=== PATIENT | male | born 1940 | race Caucasian/White ===

== ENCOUNTER → 2019-08-06 14:52 | Outpatient (BNVA) | payer MEDICARE, OTHER, SELFPAY | PROVIDERS: Family Provider Family Medicine; PCP Family Medicine; Visit Provider Family Medicine | DX: M25.531 Pain in right wrist (principal) | CPT/HCPCS: 73130 ==

== ENCOUNTER → 2020-01-01 10:00 | Outpatient (BNVA) | payer MEDICARE, OTHER, SELFPAY | PROVIDERS: Family Provider Family Medicine; PCP Family Medicine; Visit Provider Urology | DX: N40.1 Benign prostatic hyperplasia with lower urinary tract symptoms (principal) | CPT/HCPCS: G0103 ==

== ENCOUNTER → 2020-01-15 10:49 | Outpatient (BNVA) | payer MEDICARE, OTHER, SELFPAY | PROVIDERS: Family Provider Family Medicine; PCP Family Medicine; Visit Provider Family Medicine | DX: E78.5 Hyperlipidemia, unspecified (principal); I10 Essential (primary) hypertension | CPT/HCPCS: 80053; 80061; 85025 ==

== ENCOUNTER → 2020-01-20 08:28 | Outpatient (BNVA) | payer MEDICARE, OTHER, SELFPAY | PROVIDERS: Family Provider Family Medicine; Visit Provider Specialist | DX: R41.9 Unspecified symptoms and signs involving cognitive functions and awareness (principal); Z87.891 Personal history of nicotine dependence | CPT/HCPCS: 96116; 99213 ==

== ENCOUNTER 2020-04-11 17:01 | Emergency (ER) | payer MEDICARE, OTHER, SELFPAY ==
[2020-04-11 17:11] VITALS: BP 150/79; PULSE 65; RESP 18; TEMP 36.9; O2SAT 97; BMI 29.7
[2020-04-11 17:17] VITALS: BP 150/79; PULSE 55; RESP 16; O2SAT 98
--- NOTE | 2020-04-11 17:17 | W.ED.WOUNDLC ---
HPI - Wound/Laceration General: Chief Complaint: Wound/Laceration Stated Complaint: cut hand with a knife Time Seen by Provider: 04/11/20 17:13 History of Present Illness: HPI narrative: 79-year-old male is using a machete at home is a laceration on the lateral aspect of the right index finger he is unsure of his last tetanus shot no other injuries Onset (ago): minute(s) Extremity Location: Right: hand Place: home Patient tetanus UTD: No Context: accidental Associated symptoms: Reports no associated symptoms; Denies chills, fever(s), nausea or vomiting Treatments prior to arrival: bandage Review of Systems Const: Denies: fever(s), chills, body aches, change in appetite, fatigue or malaise ENMT: Denies: throat pain, ear or mastoid pain, nasal discharge or nasal congestion Card: Denies: chest pain, edema, dyspnea on exertion or orthopnea Resp: Denies: dyspnea, productive cough or non-productive cough GI: Denies: abdominal pain, nausea, vomiting, hematemesis, coffee ground emesis, diarrhea, constipation, bloating, hematochezia or melena : Denies: flank pain, dysuria, urinary frequency or urinary urgency PFSH ED PFSH: Medical History 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) Atherosclerosis of coronary artery of [place] heart Bradycardia Carpal tunnel syndrome of left wrist Chronic diastolic (congestive) heart failure Depressed Dyslipidemia Dyslipidemia Essential (primary) hypertension Gastro-esophageal reflux disease without esophagitis History of colon polyps History of tick-borne disease positive serology for Erlichiosis Lacunar stroke Lumbar spondylosis Moderate obstructive sleep apnea C-pap 11-15 Neuropathy Plantar fasciitis Primary osteoarthritis, unspecified site Surgical History History of bilateral cataract extraction (~2012) History of total left knee replacement (~2011) Hx of angioplasty stents x , 2008; 2017 Hx of laminectomy lumbar L1-2-3-4-5 Hx of shoulder surgery (~2011) rotator cuff and tendon repairs x several per pt Family History Mother Diabetes Father CAD (coronary artery disease) Brother CAD (coronary artery disease) Sister CAD (coronary artery disease) Social History Smoking and tobacco status: former smoker Quit status (tobacco): has quit using tobacco Year quit tobacco: 42 Alcohol intake: never Lives independently: Yes Household members: spouse Housing: House Marital status: Current occupational status: retired History of recent travel: Yes ([place]) Current gender identity: Male Michelle/Buddhist: [facility] Physical Exam Const: COMMON NORMALS: no acute distress GENERAL APPEARANCE: cooperative and comfortable ORIENTATION/CONSCIOUSNESS: Yes awake, Yes oriented to person, Yes oriented to place and Yes oriented to time HENMT: COMMON NORMALS: normocephalic, atraumatic and hearing grossly normal bilaterally HEAD & SCALP: normocephalic and atraumatic Resp: COMMON NORMALS: normal respiratory effort, No retractions, No use of accessory muscles and clear to auscultation bilaterally AUSCULTATION: clear to auscultation bilaterally Cardio: COMMON NORMALS: regular rate, regular rhythm and No murmurs present (Cardio) RATE: regular rate RHYTHM: regular rhythm Extremity: NARRATIVE EXTREMITY EXAM: Laceration on the right index finger laterally. No tendon involvement. Patient able to hold against resistance. Neuro: SENSORIUM/ORIENTATION: Yes oriented to person, Yes oriented to place and Yes oriented to time Skin: COMMON NORMALS: no rashes or lesions noted GENERAL SKIN EXAM: no rashes or lesions noted Procedures Laceration Laceration 1: Site: hand (Right index finger) Side (If applicable): right Size (cm): 3 Description: linear Depth: simple, single layer Local Anesthetic: lidocaine 1% Amount of anesthesia used (mL): 3 Pre-repair: wound explored and irrigated extensively Skin layer closed with: nylon Size (cm): 4-0 Technique: running Course Vital Signs: Vital signs: Vital Signs Temperature 98.5 F 04/11/20 17:11 Pulse Rate 56 L 04/11/20 17:59 Respiratory Rate 16 04/11/20 17:59 Blood Pressure 145/80 04/11/20 17:59 Pulse Oximetry 98 04/11/20 17:59 MDM - Wound/Laceration MDM Narrative: Medical decision making narrative: Wound care instructions given. Sutures out in 7 to 10 days tetanus updated Discharge Plan Discharge Patient Disposition: Home Clinical Impression: Laceration Condition: Stable Prescriptions: No Action Lactobacillus acidophilus [Acidophilus] Capsule 100 mg PO DAILY RF: 0 tamsulosin 0.4 mg capsule 0.4 mg PO DAILY RF: 0 donepezil [Aricept] 5 mg tablet 5 mg PO DAILY Qty: 90 RF: 1 carvedilol 6.25 mg tablet 6.25 mg PO DAILY RF: 0 fluticasone propionate [Flonase Allergy Relief] 50 mcg/actuation spray,suspension 1 spray INTRANASAL Q12H Qty: 18.2 RF: 2 diclofenac sodium [Voltaren] 1 % gel 2 gm TOPICAL QID Qty: 100 RF: 0 azithromycin 500 mg tablet See Rx Instructions PO .COMPLEX Qty: 6 RF: 0 venlafaxine 150 mg capsule,extended release 24hr See Rx Instructions .ROUTE .COMPLEX Qty: 90 RF: 3 pravastatin 80 mg tablet 80 mg PO DAILY Qty: 90 RF: 0 ramipril 10 mg capsule 10 mg PO DAILY Qty: 90 RF: 0 Discharge Orders: Discharge Order (Routine); Ordered 04/11/20 Ordered By: Beltran Coffey Referrals: Lisa Hyde MD [Primary Care Provider] - Discharge Diet: Usual diet Discharge Activity: Increase activity as tolerated Activity Restrictions/Additional Instructions: Follow-up with your primary care doctor in 7 days to have sutures removed Discharge Date/Time: 04/11/20 17:59 Coding Level of Care Code ED Lunch Truck Driver for Mmeog Fwd Exam Detailed
[2020-04-11] MEDS: lidocaine 1% INJ 20 mL INJECTION (17:41)
[2020-04-11] MEDS: tetanus-dipt-pertussis 0.5 mL SDV IM (17:52)
[2020-04-11 17:59] VITALS: BP 145/80; PULSE 56; RESP 16; O2SAT 98
== END 2020-04-11 17:59 | disposition home or self-care (01) ==
PROVIDERS: Emergency Provider Family Medicine; PCP Family Medicine
DX: S61.210A Laceration without foreign body of right index finger without damage to nail, initial encounter (principal); E78.5 Hyperlipidemia, unspecified; I10 Essential (primary) hypertension; Z87.891 Personal history of nicotine dependence; W26.0XXA Contact with knife, initial encounter; Z23 Encounter for immunization
CPT/HCPCS: 12002; 12345; 90715; 99282

== ENCOUNTER 2020-04-15 14:14 | Emergency (ER) | payer MEDICARE, OTHER, SELFPAY ==
[2020-04-15 14:17] VITALS: BP 157/79; PULSE 62; RESP 17; TEMP 36.4; O2SAT 98; BMI 29.7
--- NOTE | 2020-04-15 14:27 | USCV_ITS ---
Bhupendra Ambriz Age: 79 Gender: M : 1940 Exam Date: 04/15/2020 14:42 Ordering Phys: Samuel Redding Technologist: Dary Bradford Exam Location: [facility] Indication: RECENT RT KNEE REPLACEMENT HISTORY: Recent Rt knee replacement PROCEDURES: Venous duplex imaging was performed in only the right lower extremity. The following venous structures were evaluated: common femoral vein, profunda vein, proximal portion of the greater saphenous vein, superficial femoral vein, and the popliteal vein. In addition, the posterior tibial and peroneal trunk were evaluated. Serial compression, augmentation maneuvers, and spectral Doppler flow evaluation were performed. FINDINGS: No DVT seen in any vessel examined CONCLUSIONS Negative right lower extremity venous Doppler ultrasound. Dr. Tammy Gupta MD (Electronically Signed) Final Date: 15 April 2020 15:04 S
--- NOTE | 2020-04-15 14:43 | W.ED.EXTPRO ---
HPI - Extremity Problem General: Chief complaint: Extremity Problem,Nontraumatic Stated complaint: sent by doctor/possible blood clot right leg Time Seen by Provider: 04/15/20 14:28 History of Present Illness: HPI Narrative: Patient is a 79-year-old male who comes to the ED with right calf pain and swelling below the knee. Patient was sent over here by his doctor to rule out a blood clot. Patient describes having brief episodes of right calf pain right around the back of the knee. These episodes are very brief and currently is not experiencing any lower leg pain. He also describes having some right knee swelling that comes and goes depending on how active he is that day. Patient had total knee replacement performed on March 17. He has been doing his post surgical therapy. He is able to bend knee. Patient is not currently on blood thinner. Patient denied any cough, coughing up blood, chest pain or shortness of breath. Associated symptoms: Deny chest pain, fever(s) or rash Review of Systems Const: Denies: fever(s), chills or fatigue Eyes: Denies: change in vision or eye discomfort ENMT: Denies: throat pain, odynophagia, nasal discharge or nasal congestion Card: Denies: chest pain, palpitations, edema, swelling of feet/ankles, dyspnea on exertion or orthopnea Resp: Denies: dyspnea, productive cough or non-productive cough GI: Denies: abdominal pain, nausea, vomiting, diarrhea, constipation or hematochezia : Denies: flank pain, difficulty urinating, dysuria or hematuria Musc: Reports: extremity pain (right lower leg) and extremity swelling (Right lower leg); Denies: neck pain or back pain Skin/Breast: Denies: rash or new lesions Neuro: Denies: headache(s), numbness in extremities or weakness in extremities PFS ED PFSH: Medical History 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) Atherosclerosis of coronary artery of [place] heart Bradycardia Carpal tunnel syndrome of left wrist Chronic diastolic (congestive) heart failure Depressed Dyslipidemia Dyslipidemia Essential (primary) hypertension Gastro-esophageal reflux disease without esophagitis History of colon polyps History of tick-borne disease positive serology for Erlichiosis Lacunar stroke Lumbar spondylosis Moderate obstructive sleep apnea C-pap 11-15 Neuropathy Plantar fasciitis Primary osteoarthritis, unspecified site Surgical History History of bilateral cataract extraction (~2012) History of total left knee replacement (~2011) Hx of angioplasty stents x 3, 2008; 2017 Hx of laminectomy lumbar L1-2-3-4-5 Hx of shoulder surgery (~2011) rotator cuff and tendon repairs x several per pt Family History Mother Diabetes Father CAD (coronary artery disease) Brother CAD (coronary artery disease) Sister CAD (coronary artery disease) Social History Smoking and tobacco status: former smoker Quit status (tobacco): has quit using tobacco Year quit tobacco: 40 Alcohol intake: never Lives independently: Yes Household members: spouse Housing: House Marital status: Current occupational status: retired History of recent travel: Yes ([place]) Current gender identity: Male Michelle/Latter Day: Hinduism of [facility] [place] Physical Exam Const: COMMON NORMALS: no acute distress, patient oriented x3, healthy appearing and alert GENERAL APPEARANCE: cooperative and comfortable HENMT: COMMON NORMALS: normocephalic HEAD & SCALP: normocephalic MOUTH: Normal oral and palatal mucosa present THROAT: posterior oropharynx normal and uvula midline Neck/C-Spine: COMMON NORMALS: supple GENERAL: Yes normal visual inspection Resp: COMMON NORMALS: normal respiratory effort, No retractions, No use of accessory muscles and clear to auscultation bilaterally EFFORT & INSPECTION: Yes able to speak in complete sentences, No tachypneic, No respiratory distress and No labored AUSCULTATION: clear to auscultation bilaterally, breath sounds present and lung sounds not diminished Cardio: COMMON NORMALS: regular rate, regular rhythm, S1 normal heart sound present, S2 normal heart sound present, No gallops present (Cardio), No clicks present (Cardio), No murmurs present (Cardio) and Peripheral pulses 2+ throughout RATE: regular rate RHYTHM: regular rhythm HEART SOUNDS: S1 normal heart sound present and S2 normal heart sound present PERIPHERAL PULSES: Peripheral pulses 2+ throughout GI: COMMON NORMALS: Normal to inspection, nondistended, normoactive bowel sounds present, Soft to palpation, non-tender and no masses PALPATION: Yes Soft to palpation : COMMON NORMALS: Yes no CVA tenderness BLADDER/KIDNEY EXAM: Yes no CVA tenderness Back/Pelvis: COMMON NORMALS: no CVA tenderness Extremity: NARRATIVE EXTREMITY EXAM: Patient is some right knee swelling. There is some mild warmth to the touch of the right knee joint but no redness. Patient is able to bend and flex right knee. Pedal pulse 2+. No tenderness upon palpation of the right calf. No suspicion for septic joint upon examination. GENERAL: Yes normal exam except as noted Neuro: COMMON NORMALS: patient oriented x3 and moves all extremities SENSORIUM/ORIENTATION: Yes alert Skin: COMMON NORMALS: no rashes or lesions noted GENERAL SKIN EXAM: no rashes or lesions noted and dry skin Course Vital Signs: Vital signs: Vital Signs Temperature 97.6 F 04/15/20 14:17 Pulse Rate 62 04/15/20 14:17 Respiratory Rate 18 04/15/20 14:49 Blood Pressure 157/79 04/15/20 14:17 Pulse Oximetry 98 04/15/20 14:17 MDM - Extremity (Nontraumatic) MDM Narrative: Medical decision making narrative: Patient is a 79-year-old male was sent to the ED by for right calf pain and right knee swelling. Patient had total knee replacement surgery performed on March 17. He denies any shortness of breath, chest pain, cough, coughing up blood. Patient's pulse 62 and respirations 18 and O2 saturation 98% on room air. Physical exam showed no calf tenderness with some swelling around the knee with some warmth to the touch. No erythema and patient was able to bend and move right knee joint appropriately. No suspicion for septic joint. Ultrasound of right lower extremity showed no DVTs or blood clots. Patient was discharged told to follow-up with PCP in 7 to 10 days for reevaluation. Return to ED precautions given. Patient understood and agreed with plan. Imaging Data^: US Vascular: Attestation: I personally reviewed and interpreted this imaging study as follows: Radiologist's impression: For some venous duplex on right lower extremity?prelim report?no DVTs or blood clots seen. Discharge Plan Discharge Patient Disposition: Home Clinical Impression: Pain of right lower extremity, Swelling of right knee joint Condition: Stable Prescriptions: No Action Lactobacillus acidophilus [Acidophilus] Capsule 100 mg PO DAILY RF: 0 tamsulosin 0.4 mg capsule 0.4 mg PO DAILY RF: 0 donepezil [Aricept] 5 mg tablet 5 mg PO DAILY Qty: 90 RF: 1 carvedilol 6.25 mg tablet 6.25 mg PO DAILY RF: 0 fluticasone propionate [Flonase Allergy Relief] 50 mcg/actuation spray,suspension 1 spray INTRANASAL Q12H Qty: 18.2 RF: 2 diclofenac sodium [Voltaren] 1 % gel 2 gm TOPICAL QID Qty: 100 RF: 0 azithromycin 500 mg tablet See Rx Instructions PO .COMPLEX Qty: 6 RF: 0 venlafaxine 150 mg capsule,extended release 24hr See Rx Instructions .ROUTE .COMPLEX Qty: 90 RF: 3 pravastatin 80 mg tablet 80 mg PO DAILY Qty: 90 RF: 0 ramipril 10 mg capsule 10 mg PO DAILY Qty: 90 RF: 0 Discharge Orders: Discharge Order (Routine); Ordered 04/15/20 Ordered By: Samuel Redding Referrals: Lisa Hyde MD [Primary Care Provider] - Discharge Diet: Regular Discharge Activity: Increase activity as tolerated Activity Restrictions/Additional Instructions: Follow-up with medical provider as directed in 7-10 days. Ultrasound was performed during the ED on right lower extremity and it ruled out any blood clots or DVTs. Continue taking home medications as prescribed. Return to the ER or your medical provider if condition worsens. Please read and understand discharge instructions. If any questions, please ask. Coding Level of Care Code ED Management Lead for Kapil Fwd Exam Comprehensive
[2020-04-15 14:49] VITALS: RESP 18
== END 2020-04-15 15:17 | disposition home or self-care (01) ==
PROVIDERS: Emergency Provider Physician Assistant; PCP Family Medicine
DX: M79.89 Other specified soft tissue disorders (principal); M79.604 Pain in right leg; E78.5 Hyperlipidemia, unspecified; I10 Essential (primary) hypertension; Z87.891 Personal history of nicotine dependence
CPT/HCPCS: 12345; 93971; 99281; 99282

== ENCOUNTER → 2020-05-10 11:24 | Outpatient (BNVA) | payer MEDICARE, OTHER, SELFPAY | PROVIDERS: PCP Family Medicine; Visit Provider Specialist | DX: R41.3 Other amnesia (principal); G31.84 Mild cognitive impairment of uncertain or unknown etiology; G47.00 Insomnia, unspecified | CPT/HCPCS: 99213 ==

== ENCOUNTER 2020-09-28 08:43 | Outpatient (CLI) | payer MEDICARE, OTHER, SELFPAY ==
--- NOTE | 2020-09-28 08:50 | CT_ITS ---
WS: [id number] CT NECK WITH CONTRAST HISTORY: DYSPHAGIA TECHNIQUE: Contiguous 5 mm axial images are performed through the neck with intravenous contrast. Sag ittal and coronal reformats are also submitted. All CT scans at [facility] use at least o ne of these dose optimization techniques: automated exposure control; mA and/or kV adjustment per pat ient size (includes targeted exams where dose is matched to clinical indication); or iterative recons truction. CONTRAST: CONTRAST: Omnipaque 300; 95 mL IV. DLP: 2831.25 mGycm COMPARISON: 09/04/2013 MRI cervical spine. There are some very mild asymmetry noted involving the LEFT palatine tonsil. Similar to prior studies . Otherwise the hypopharynx, oropharynx and nasopharynx are negative. No larynx abnormality. Vocal co rds are symmetric. Subglottic airway is normal. Torus tubarius and fossa of Rosenmuller and parapharyngeal fat are normal. No significant lymphadenopathy is identified. Thyroid gland and salivary glands are normally enhancing with no masses. Moderate multilevel spondylitic changes in the cervical spine. Degenerative changes at the SC joints. Visualized portions of the skull base demonstrate no abnormalities. Orbits and globes are within norm al limits. No soft tissue masses. Visualized paranasal sinuses and mastoid air cells are normal. Lung apices are clear. Small amount calcified plaque at the extracranial carotid bifurcations. CT/CT neck w con* [id number] IMPRESSION: 1. No abnormality noted within the larynx and no adenopathy. 2. Mild atherosclerosis carotid bifurcations.
--- NOTE | 2020-09-28 08:55 | FL_ITS ---
WS: [id number] ESOPHAGRAM WITH FLUOROSCOPY HISTORY: DYSPHAGIA COMPARISON: None available. FLUOROSCOPY TIME: 0.8 minutes. Esophagus and swallowing function: Patient was able to swallow the thin and thick barium mixtures as requested. After swallowing there is significant residual barium coating the oral pharynx, hypopharyn x, larynx and upper esophagus. There is no stricture identified. Towards the end of the examination w ith the thin liquids there was an episode of moderate aspiration of the barium. Patient elicited a st lakia responsive cough. Study terminated at that time. Esophageal dysmotility and tortuosity. FL/FL barium swallow [id number] IMPRESSION: 1. Episode of significant barium aspiration noted with thin liquids. 2. Otherwise there is significant residual coating after swallowing throughout the cervical esophagus. This places the patient at increased risk for persiste nt aspiration.
[2020-09-28 09:42] LABS: Blood Urea Nitrogen 15 mg/dL (8-23)
[2020-09-28] MEDS: iohexol 300 mg/mL 100 mL Btl IV (09:49)
== END 2020-09-28 08:44 | disposition home or self-care (01) ==
LOC: RADWPI 08:47
PROVIDERS: PCP Family Medicine; Visit Provider Specialist
DX: R13.10 Dysphagia, unspecified (principal); I65.29 Occlusion and stenosis of unspecified carotid artery
CPT/HCPCS: 70491; 74220; 82565; 84520; Q9967

== ENCOUNTER 2020-09-30 08:15 | Outpatient (CLI) | payer MEDICARE, OTHER, SELFPAY ==
--- NOTE | 2020-09-30 08:22 | FL_ITS ---
WS: [id number] Exam: FL barium swallow modifd [id number] Date/Time of Exam: 09/30/2020 8:39 AM Reason For Exam: Other dysphagia Fluoroscopy time: 4.2 minutes Modified barium swallow was performed in conjunction with the speech therapy service. The patient experienced some difficulty initiating the swallowing process specifically elevating the tongue the hard palate during swallowing. There was significant penetration into the laryngeal inlet when the patient ingested nectar consistency barium foodstuffs. This was remedied using a chin tuck t echnique. Using chin tuck the patient tolerated thin liquid, nectar consistency and solid barium mixt ure foodstuffs without a lot of difficulty. There were no other episodes of penetration or aspiration . Upper esophageal motility was somewhat sluggish. FL/FL barium swallow modifd [id number] IMPRESSION: 1. The patient had some difficulty initiating the swallowing process at the lev el of the oropharynx. 2. The patient experienced penetration into the laryngeal inlet and coughing wh en ingesting nectar consistency barium foodstuffs. 3. Sluggish esophageal motility involving the upper esophagus. 4. Patient at moderate risk for aspiration. See speech therapist's report for r ecommendations and additional detail.
== END 2020-09-30 08:16 | disposition home or self-care (01) ==
LOC: RAD 08:19
PROVIDERS: PCP Family Medicine; Visit Provider Specialist
DX: R13.19 Other dysphagia (principal)
CPT/HCPCS: 74230; 92611

== ENCOUNTER → 2020-10-04 15:28 | Outpatient (BNVA) | payer MEDICARE, OTHER, SELFPAY | PROVIDERS: PCP Family Medicine; Visit Provider Family Medicine | DX: K21.9 Gastro-esophageal reflux disease without esophagitis (principal); R13.10 Dysphagia, unspecified; R73.9 Hyperglycemia, unspecified | CPT/HCPCS: 80048 ==

== ENCOUNTER 2020-10-11 06:00 | Outpatient (RCR) | payer MEDICARE, OTHER, SELFPAY | END 2020-11-02 23:59 | disposition home or self-care (01) | LOC: TST 06:00 | PROVIDERS: PCP Family Medicine; Referring Provider Family Medicine; Visit Provider Family Medicine | DX: R13.10 Dysphagia, unspecified (principal) | CPT/HCPCS: 92507; 92610 ==

== ENCOUNTER 2020-10-15 12:37 | Observation (INO) | payer MEDICARE, OTHER, SELFPAY ==
[2020-10-15] VITALS (29 sets, daily range): BP systolic 150–170; BP diastolic 76–97; PULSE 45–78; RESP 13–23; TEMP 36.3–37.6; O2SAT 89–99; BMI 29.0
--- NOTE | 2020-10-15 12:43 | XRR_ITS ---
PROCEDURE INFORMATION: Exam: XR Chest Exam date and time: 10/15/2020 1:29 PM Age: 79 years old Clinical indication: Other: Dysarthria; Prior surgery; Surgery type: Stents; Additional info: Cp TECHNIQUE: Imaging protocol: XR of the chest Views: 1 view. COMPARISON: CT chest con [id number] 03/20/2019 11:42 AM FINDINGS: Lungs: No consolidation. Pleural spaces: Unremarkable. No pleural effusion. No pneumothorax. Heart/Mediastinum: No cardiomegaly. Bones/joints: No acute fracture. XR/XR chest 1V portable [id number] IMPRESSION: No acute findings.
--- NOTE | 2020-10-15 12:44 | ECG_ITS ---
[facility] Test Date: 2020-10-15 Pat Name: Bhupendra Ambriz Department: Room: Gender: Male Data Communications Analyst: : 1940 Requested By: Chuckie Clayton Order Number: [id number] Shakila MD: Winsome Land M.D. Measurements Intervals [place] Rate: 53 P: 69 NJ: 184 QRS: -4 QRSD: 104 T: 23 QT: 413 QTc: 388 Interpretive Statements SINUS BRADYCARDIA POSSIBLE ANTERIOR MYOCARDIAL INFARCTION , OF INDETERMINATE AGE [30 ms Q WAVE IN V3/V4, OR R < 0.2 mV IN V4] MODERATE T-WAVE ABNORMALITY, CONSIDER LATERAL ISCHEMIA [-0.1+ mV T WAVE IN I/aVL/V5/V6] Compared to ECG 01/04/2019 13:49:36 T-wave abnormality now present Possible ischemia now present Left ventricular hypertrophy no longer present Myocardial infarct finding still present Electronically Signed On 10-15-2020 19:38:33 PRICING INTERN by Winsome Land M.D. [id number]
--- NOTE | 2020-10-15 12:45 | CTR_ITS ---
PROCEDURE INFORMATION: Exam: CT Head Without Contrast Exam date and time: 10/15/2020 12:46 PM Age: 79 years old Clinical indication: Altered mental status/memory loss and speech disturbance; Confusion or disorientation; Slurred speech; Additional info: Stroke like symptoms TECHNIQUE: Imaging protocol: Computed tomography of the head without contrast. Radiation optimization: All CT scans at this facility use at least one of these dose optimization techniques: automated exposure control; mA and/or kV adjustment per patient size (includes targeted exams where dose is matched to clinical indication); or iterative reconstruction. COMPARISON: CT head wo con* [id number] 01/06/2018 2:56 PM RADIATION DOSE METRICS: Total DLP (mGy-cm): 843.24 FINDINGS: Brain: No hemorrhage. No edema, mass effect or midline shift. Cerebral ventricles: No ventriculomegaly. Bones/joints: No acute fracture. Paranasal sinuses: Visualized sinuses are unremarkable. No fluid levels. Mastoid air cells: No mastoid effusion. Soft tissues: Unremarkable. CT/CT head wo con* [id number] IMPRESSION: No acute intracranial abnormality. Radiation Dose CTDIVOL = (mGy): DLP = 843.24 (mGy-cm)
--- NOTE | 2020-10-15 12:55 | ED_ITS ---
HPI - Chest Pain General: Chief Complaint: Chest Pain Stated Complaint: chest pain, trouble finding words Time Seen by Provider: 10/15/20 12:40 History of Present Illness: HPI narrative: The patient is a 79-year-old male with past medical history of coronary artery disease with stenting and on some unknown blood thinner. He comes to the ER after he complained of chest pain at 9 AM this morning. It was off and on and at 11:30 AM he became dizzy and called EMS. They said he was having left-sided chest pressure and gave him aspirin 324 and nitro x2. He said his chest pain resolved after the second nitroglycerin however during transport he began having trouble finding words and having slightly slurred speech. When asked what blood thinner he is not on he does not remember and is having trouble finding some words. He has never had a stroke before and has no focal weakness but definitely has dysarthria. 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 Pain location: left chest Severity: moderate Quality: tightness and similar to prior [place] Relieving factors: nitroglycerin Associated symptoms: Reports no associated symptoms; Deny abdominal pain, dyspnea or palpitations Treatment prior to arrival: aspirin and nitroglycerin Review of Systems General: Reports: 10 or more systems reviewed and unremarkable except in HPI and below Const: Denies: fatigue Eyes: Denies: change in vision, blurry vision or eye redness ENMT: Denies: throat pain, swelling of lips/tongue, ear or mastoid pain or nasal congestion Card: Reports: chest pain; Denies: palpitations, irregular heart rhythm, edema, dyspnea on exertion or orthopnea Resp: Denies: dyspnea, productive cough or non-productive cough GI: Denies: abdominal pain, diarrhea or GI cramping : Denies: flank pain, urinary frequency or urinary urgency Musc: Denies: neck pain, back pain, extremity pain, joint pain, joint redness, limited range of motion or muscle weakness Skin/Breast: Denies: rash, pruritus, erythema, skin pain or skin tenderness Neuro: Reports: other (mild dysarthria); Denies: headache(s), numbness in extremities, weakness in extremities, sensory changes, difficulty walking, dizziness, confusion or Slurred speech present Psych: Denies: anxiety or depression Endo: Denies: polyuria All/Imm: Denies: urticaria, throat swelling or tongue swelling PFSH ED PFSH: Medical History (Updated 10/15/20 @ 16:47 by Chuckie Clayton MD) 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) Atherosclerosis of coronary artery of [place] heart Bradycardia Carpal tunnel syndrome of left wrist Chronic diastolic (congestive) heart failure Depressed Dyslipidemia Dyslipidemia Essential (primary) hypertension Gastro-esophageal reflux disease without esophagitis History of colon polyps History of tick-borne disease positive serology for Erlichiosis Lacunar stroke Lumbar spondylosis Moderate obstructive sleep apnea C-pap 11-15 Neuropathy Plantar fasciitis Primary osteoarthritis, unspecified site Surgical History History of bilateral cataract extraction (~2012) History of total left knee replacement (~2011) Hx of angioplasty stents x 3, 2008; 2016 Hx of laminectomy lumbar L1-2-3-4-5 Hx of shoulder surgery (~2011) rotator cuff and tendon repairs x several per pt Family History Mother Diabetes Father CAD (coronary artery disease) Brother CAD (coronary artery disease) Sister CAD (coronary artery disease) Social History Smoking and tobacco status: former smoker Quit status (tobacco): has quit using tobacco Year quit tobacco: 42 Alcohol intake: never Lives independently: Yes Household members: spouse Housing: House Marital status: Current occupational status: retired History of recent travel: Yes ([place]) Current gender identity: Male Michelle/Pentecostalism: [facility] Physical Exam Const: COMMON NORMALS: no acute distress, average body habitus, patient oriented x3, no limitations, healthy appearing, alert and well nourished GENERAL APPEARANCE: cooperative, comfortable, well kempt and well developed ORIENTATION/CONSCIOUSNESS: Yes awake, Yes oriented to person, Yes oriented to place and Yes oriented to time HENMT: COMMON NORMALS: normocephalic, external ears normal and Normal external nose present HEAD & SCALP: normal to inspection and normocephalic NOSE: Normal external nose present EXTERNAL EAR: Yes external ears normal MOUTH: Normal oral and palatal mucosa present THROAT: posterior oropharynx normal Eye: COMMON NORMALS: Equal, round and reactive pupils present and EOMs intact bilaterally GENERAL EYE: appearance normal, both eyes and all related structures PUPIL: Yes Equal, round and reactive pupils present Neck/C-Spine: COMMON NORMALS: full ROM, no lymphadenopathy, no meningeal signs and no JVD GENERAL: Yes normal visual inspection Lymph: LYMPHATIC: no lymphadenopathy noted Chest: COMMONS NORMALS: normal inspection of the chest and normal palpation of entire chest wall Resp: COMMON NORMALS: normal respiratory effort, No retractions, No use of accessory muscles, clear to auscultation bilaterally and percussion normal EFFORT & INSPECTION: Yes able to speak in complete sentences AUSCULTATION: clear to auscultation bilaterally PERCUSSION: percussion normal Cardio: COMMON NORMALS: no JVD, regular rate, regular rhythm, S1 normal heart sound present, S2 normal heart sound present and Peripheral pulses 2+ throughout RATE: regular rate RHYTHM: regular rhythm HEART SOUNDS: S1 normal heart sound present and S2 normal heart sound present PERIPHERAL PULSES: Peripheral pulses 2+ throughout GI: COMMON NORMALS: Normal to inspection, nondistended, normoactive bowel sounds present, Soft to palpation, non-tender and no masses INSPECTION: Yes normal to inspection PALPATION: Yes Soft to palpation : COMMON NORMALS: Yes no CVA tenderness BLADDER/KIDNEY EXAM: Yes no CVA tenderness Back/Pelvis: COMMON NORMALS: no CVA tenderness, thoracic and lumbar spine normal to inspection, no thoracic nor lumbar tenderness and thoraco-lumbar ROM normal Extremity: COMMON NORMALS: normal to inspection, full ROM, capillary refill normal, no joint enlargement and no pedal edema GENERAL: Yes normal exam except as noted Neuro: COMMON NORMALS: patient oriented x3, CN's II-XII intact bilaterally, moves all extremities, no focal motor deficits, no sensory deficits noted and gait normal SENSORIUM/ORIENTATION: Yes alert, Yes oriented to person, Yes oriented to place and Yes oriented to time MENINGEAL SIGNS: Yes no meningeal signs OTHER: mild dysarthria. NIHSS: 1. Psych: COMMON NORMALS: mental status grossly normal, Normal thought process present, cooperative, normal affect and speech normal APPEARANCE: Yes well kempt ATTITUDE: Yes calm SPEECH: Yes normal speech THOUGHT PROCESS: Normal thought process present Skin: COMMON NORMALS: no rashes or lesions noted GENERAL SKIN EXAM: no rashes or lesions noted Course Vital Signs: Vital signs: Vital Signs Temperature 97.4 F L 10/15/20 15:58 Pulse Rate 45 L 10/15/20 15:58 Respiratory Rate 15 10/15/20 15:58 Blood Pressure 151/97 10/15/20 15:58 Pulse Oximetry 96 10/15/20 15:58 MDM - Chest Pain MDM Narrative: Medical decision making narrative: The patient came in initially for chest pain and on transport had dysarthria. NIH score was [address] on arrival head and CT angiogram of the head and neck were normal. [place] Dr. Jett was consulted and did not recommend any acute intervention because after 20 minutes he has been normal. Possible TIA. Recommended admission for that. For his chest pain it was resolved by 2 nitroglycerin in route. He also had aspirin 324 prior to arrival by EMS. No ST changes seen on EKGs and initial troponin slightly elevated. Discussed with Dr. Hooks who accepts for observation. Lab Data: Labs: Lab Results 10/15/20 10/15/20 10/15/20 Range/Units 01:50 01:50 12:48 WBC 8.5 (4.0-10.0) 10^3/ uL RBC 5.09 (4.1-5.3) 10^6/u L Hgb 14.8 (11.7-16.6) g/dL Hct 46.2 (42.0-52.0) % MCV 90.8 (80-94) fL MCH 29.1 (28.0-34.0) pg MCHC 32.0 (30.0-36.0) g/dL RDW 14.0 (12.1-15.1) % Plt Count 218 (130-400) 10^3/c mm MPV 10.5 H (7.4-10.4) fL Neut % (Auto) 64.5 % Lymph % (Auto) 21.3 % Sampson % (Auto) 11.4 % Eos % (Auto) 1.9 % Baso % (Auto) 0.5 % Neut # (Auto) 5.52 (1.8-7.7) 10^3/u L Lymph # (Auto) 1.8 (0.8-4.8) 10^3/u L Sampson # (Auto) 1.0 H (0.2-0.9) 10^3/u L Eos # (Auto) 0.2 (0.0-0.8) 10^3/u L Baso # (Auto) 0.0 (0.0-0.1) 10^3/u L Nucleated RBC % (a uto) 0 % Nucleated RBCs # 0.0 /100WBC PT (12.1-14.9) SECO NDS INR (0.8-1.2) APTT (23.9-36.7) SECO NDS D-Dimer (0-0.59) ug/mIFE U Sodium (136-145) mmol/L Potassium (3.5-5.1) mmol/L Chloride (98-107) mmol/L Carbon Dioxide (22-29) mmol/L Anion Gap (5-19) BUN (8-23) mg/dL Creatinine (0.7-1.2) mg/dL GFR Calculation Glucose (65-115) mg/dL POC Glucose (70-110) mg/dL Calculated Osmolal ity (285-295) mOsm/k g Calcium (8.5-10.5) mg/dL Total Bilirubin (0.15-1.2) mg/dL AST (0-40) U/L ALT (0-41) U/L Alkaline Phosphata se (40-130) IU/L Troponin T Baselin e (0-15) ng/L Troponin T 120 Min edgar (0-15) ng/L Delta Troponin T (0-10) ABS# NT-Pro-B Natriuret Pep (0-450) pg/mL Total Protein (6.6-8.7) g/dL Albumin (3.5-5.2) g/dL Globulin (1.3-4.6) g/dL Urine Color Straw (Yellow) Urine Appearance Clear (CLEAR) Urine pH 8 H (5-7) Ur Specific Gravit y 1.010 (1.005-1.030) Urine Protein Neg (Negative) Urine Glucose (UA) Norm (Normal) Urine Ketones Negative (Negative) Urine Blood Neg (Negative) Urine Nitrate Negative (Negative) Urine Bilirubin Neg (Negative) Prot Sulfosalicyli c Acd Negative (Negative) Urine Urobilinogen Norm (Negative) mg/dL Ur Leukocyte Nurys ase Negative (Negative) Urine Opiates Scre en Negative (Negative) ng/mL Ur Barbiturates Sc reen Negative (Negative) ng/mL Ur Phencyclidine S crn Negative (Negative) ng/mL Ur Amphetamines Sc reen Negative (Negative) ng/mL U Benzodiazepines Scrn Negative (Negative) ng/mL Urine Cocaine Scre en Negative (Negative) ng/mL U Marijuana (THC) Screen Negative (Negative) ng/mL 10/15/20 10/15/20 10/15/20 Range/Units 12:48 12:48 12:48 WBC (4.0-10.0) 10^3/ uL RBC (4.1-5.3) 10^6/u L Hgb (11.7-16.6) g/dL Hct (42.0-52.0) % MCV (80-94) fL MCH (28.0-34.0) pg MCHC (30.0-36.0) g/dL RDW (12.1-15.1) % Plt Count (130-400) 10^3/c mm MPV (7.4-10.4) fL Neut % (Auto) % Lymph % (Auto) % Sampson % (Auto) % Eos % (Auto) % Baso % (Auto) % Neut # (Auto) (1.8-7.7) 10^3/u L Lymph # (Auto) (0.8-4.8) 10^3/u L Sampson # (Auto) (0.2-0.9) 10^3/u L Eos # (Auto) (0.0-0.8) 10^3/u L Baso # (Auto) (0.0-0.1) 10^3/u L Nucleated RBC % (a uto) % Nucleated RBCs # /100WBC PT 13.40 (12.1-14.9) SECO NDS INR 0.99 (0.8-1.2) APTT 30.0 (23.9-36.7) SECO NDS D-Dimer 2.34 H (0-0.59) ug/mIFE U Sodium 134 L (136-145) mmol/L Potassium 4.5 (3.5-5.1) mmol/L Chloride 102 (98-107) mmol/L Carbon Dioxide 23 (22-29) mmol/L Anion Gap 13.5 (5-19) BUN 14 (8-23) mg/dL Creatinine 0.9 (0.7-1.2) mg/dL GFR Calculation Not Reportable Glucose 90 (65-115) mg/dL POC Glucose (70-110) mg/dL Calculated Osmolal ity 278 L (285-295) mOsm/k g Calcium 8.6 (8.5-10.5) mg/dL Total Bilirubin 0.2 (0.15-1.2) mg/dL AST 33 (0-40) U/L ALT 21 (0-41) U/L Alkaline Phosphata se 71 (40-130) IU/L Troponin T Baselin e 18 H (0-15) ng/L Troponin T 120 Min edgar (0-15) ng/L Delta Troponin T (0-10) ABS# NT-Pro-B Natriuret Pep 22 (0-450) pg/mL Total Protein 6.4 L (6.6-8.7) g/dL Albumin 3.5 (3.5-5.2) g/dL Globulin 2.9 (1.3-4.6) g/dL Urine Color (Yellow) Urine Appearance (CLEAR) Urine pH (5-7) Ur Specific Gravit y (1.005-1.030) Urine Protein (Negative) Urine Glucose (UA) (Normal) Urine Ketones (Negative) Urine Blood (Negative) Urine Nitrate (Negative) Urine Bilirubin (Negative) Prot Sulfosalicyli c Acd (Negative) Urine Urobilinogen (Negative) mg/dL Ur Leukocyte Nurys ase (Negative) Urine Opiates Scre en (Negative) ng/mL Ur Barbiturates Sc reen (Negative) ng/mL Ur Phencyclidine S crn (Negative) ng/mL Ur Amphetamines Sc reen (Negative) ng/mL U Benzodiazepines Scrn (Negative) ng/mL Urine Cocaine Scre en (Negative) ng/mL U Marijuana (THC) Screen (Negative) ng/mL 10/15/20 10/15/20 Range/Units 13:40 14:40 WBC (4.0-10.0) 10^3/ uL RBC (4.1-5.3) 10^6/u L Hgb (11.7-16.6) g/dL Hct (42.0-52.0) % MCV (80-94) fL MCH (28.0-34.0) pg MCHC (30.0-36.0) g/dL RDW (12.1-15.1) % Plt Count (130-400) 10^3/c mm MPV (7.4-10.4) fL Neut % (Auto) % Lymph % (Auto) % Sampson % (Auto) % Eos % (Auto) % Baso % (Auto) % Neut # (Auto) (1.8-7.7) 10^3/u L Lymph # (Auto) (0.8-4.8) 10^3/u L Sampson # (Auto) (0.2-0.9) 10^3/u L Eos # (Auto) (0.0-0.8) 10^3/u L Baso # (Auto) (0.0-0.1) 10^3/u L Nucleated RBC % (a uto) % Nucleated RBCs # /100WBC PT (12.1-14.9) SECO NDS INR (0.8-1.2) APTT (23.9-36.7) SECO NDS D-Dimer (0-0.59) ug/mIFE U Sodium (136-145) mmol/L Potassium (3.5-5.1) mmol/L Chloride (98-107) mmol/L Carbon Dioxide (22-29) mmol/L Anion Gap (5-19) BUN (8-23) mg/dL Creatinine (0.7-1.2) mg/dL GFR Calculation Glucose (65-115) mg/dL POC Glucose 76 (70-110) mg/dL Calculated Osmolal ity (285-295) mOsm/k g Calcium (8.5-10.5) mg/dL Total Bilirubin (0.15-1.2) mg/dL AST (0-40) U/L ALT (0-41) U/L Alkaline Phosphata se (40-130) IU/L Troponin T Baselin e (0-15) ng/L Troponin T 120 Min edgar 20.30 H (0-15) ng/L Delta Troponin T 2.30 (0-10) ABS# NT-Pro-B Natriuret Pep (0-450) pg/mL Total Protein (6.6-8.7) g/dL Albumin (3.5-5.2) g/dL Globulin (1.3-4.6) g/dL Urine Color (Yellow) Urine Appearance (CLEAR) Urine pH (5-7) Ur Specific Gravit y (1.005-1.030) Urine Protein (Negative) Urine Glucose (UA) (Normal) Urine Ketones (Negative) Urine Blood (Negative) Urine Nitrate (Negative) Urine Bilirubin (Negative) Prot Sulfosalicyli c Acd (Negative) Urine Urobilinogen (Negative) mg/dL Ur Leukocyte Nurys ase (Negative) Urine Opiates Scre en (Negative) ng/mL Ur Barbiturates Sc reen (Negative) ng/mL Ur Phencyclidine S crn (Negative) ng/mL Ur Amphetamines Sc reen (Negative) ng/mL U Benzodiazepines Scrn (Negative) ng/mL Urine Cocaine Scre en (Negative) ng/mL U Marijuana (THC) Screen (Negative) ng/mL Discharge Plan Discharge Patient Disposition: Placed in Observation Admit Provider: Serena Hooks Clinical Impression: Focal neurological deficit, Chest pain Coding Level of Care Code 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
--- NOTE | 2020-10-15 12:56 | CTR_ITS ---
PROCEDURE INFORMATION: Exam: CT Angiography Head With Contrast Exam date and time: 10/15/2020 1:29 PM Age: 79 years old Clinical indication: Speech disturbance; Dysarthria and anarthria; Patient HX: Unable to find words TECHNIQUE: Imaging protocol: Computed tomography angiography of the head with intravenous contrast. 3D rendering (Not supervised by radiologist): MIP and/or 3D reconstructed images were created by the technologist. Radiation optimization: All CT scans at this facility use at least one of these dose optimization techniques: automated exposure control; mA and/or kV adjustment per patient size (includes targeted exams where dose is matched to clinical indication); or iterative reconstruction. Contrast material: OMNI 350; Contrast volume: 95 ml; Contrast route: INTRAVENOUS (IV); COMPARISON: CT head wo con* [id number] 10/15/2020 12:51 PM RADIATION DOSE METRICS: Total DLP (mGy-cm): 2108.22 FINDINGS: ANTERIOR CIRCULATION: Right internal carotid artery: Unremarkable. Intracranial segment is patent with no significant stenosis. No aneurysm. Right middle cerebral artery: Unremarkable. No occlusion or significant stenosis. No aneurysm. Right anterior cerebral artery: Unremarkable. No occlusion or significant stenosis. No aneurysm. Left internal carotid artery: Unremarkable. Intracranial segment is patent with no significant stenosis. No aneurysm. Left middle cerebral artery: Unremarkable. No occlusion or significant stenosis. No aneurysm. Left anterior cerebral artery: Unremarkable. No occlusion or significant stenosis. No aneurysm. POSTERIOR CIRCULATION: Right vertebral artery: Unremarkable. No occlusion or significant stenosis. No aneurysm. Left vertebral artery: Unremarkable. No occlusion or significant stenosis. No aneurysm. Basilar artery: Unremarkable. No occlusion or significant stenosis. No aneurysm. Right posterior cerebral artery: Unremarkable. No occlusion or significant stenosis. No aneurysm. Left posterior cerebral artery: Unremarkable. No occlusion or significant stenosis. No aneurysm. 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 Brain: Normal enhancement. No intracranial mass. No evidence of edema or infarct. Cerebral ventricles: No hydrocephalus. Bones/joints: Unremarkable. No acute fracture. IMPRESSION: 1. No acute findings. 2. Intracranial arteries widely patent with no significant stenosis. PROCEDURE INFORMATION: Exam: CT Angiography Neck With Contrast Exam date and time: 10/15/2020 1:29 PM Age: 79 years old Clinical indication: Speech disturbance; Dysarthria and anarthria; Patient HX: Unable to find words TECHNIQUE: Imaging protocol: Computed tomography angiography of the neck with intravenous contrast. 3D rendering (Not supervised by radiologist): MIP and/or 3D reconstructed images were created by the technologist. Radiation optimization: All CT scans at this facility use at least one of these dose optimization techniques: automated exposure control; mA and/or kV adjustment per patient size (includes targeted exams where dose is matched to clinical indication); or iterative reconstruction. Contrast material: OMNI 350; Contrast volume: 95 ml; Contrast route: INTRAVENOUS (IV); COMPARISON: CT head wo con* [id number] 10/15/2020 12:[address] neck January 26, 2021. Chest CT March 20, 2019. RADIATION DOSE METRICS: Total DLP (mGy-cm): 2108.22 FINDINGS: Right common carotid artery: No stenosis. No dissection or occlusion. Right internal carotid artery: Widely patent. Focal calcified plaque at the proximal right internal carotid artery causing no stenosis. Right external carotid artery: Patent; calcified plaque causing focal 60% stenosis at the origin. Right vertebral artery: No stenosis. No dissection or occlusion. Left common carotid artery: No stenosis. No dissection or occlusion. Left internal carotid artery: Patent. Focal calcified plaque at the origin of the left internal carotid artery causing focal 40% stenosis. Left external carotid artery: Patent; calcified plaque causing focal 70% stenosis at the origin Left vertebral artery: No stenosis. No dissection or occlusion. Other vasculature: No acute findings within the included upper thorax. Incidental 4 mm noncalcified posterior left upper lobe subpleural nodule on image 8 series 3 is unchanged in comparison to March 20, [address] and requires no follow-up. Bones/joints: Degenerative changes of the cervical spine. No high grade stenosis. Soft tissues: Normal. No significant soft tissue swelling. CT/CT angio headneck* [id number] IMPRESSION: 1. No acute findings. 2. Bilateral carotid and vertebral arteries widely patent. Calcified plaque at the origin of the left internal carotid artery causes focal mild stenosis. 3. Calcified plaque causing focal stenosis of the bilateral external carotid arteries at their origins, moderate on the right and severe on the left. Both vessels well opacified distally. REFERENCES: NASCET CRITERIA. The degree of internal carotid artery stenosis is based on NASCET criteria. Normal is no stenosis. Mild is less than 50% stenosis. Moderate is 50-69% stenosis. Severe is 70% to 99% stenosis. Total occlusion is no detectable patent lumen. Radiation Dose CTDIVOL = (mGy): DLP = 2108.22~2108.22 (mGy-cm)
[2020-10-15 13:10] LABS: Basophils % 0.5 %; Eosinophils # 0.2 10^3/uL (0.0-0.8); Eosinophils % 1.9 %; Hematocrit 46.2 % (42.0-52.0); Hemoglobin 14.8 g/dL (11.7-16.6); Lymphocytes # 1.8 10^3/uL (0.8-4.8); Lymphocytes % 21.3 %; Mean Corpuscular Hemoglobin 29.1 pg (28.0-34.0); Mean Corpuscular Volume 90.8 fL (80-94); Mean Platelet Volume 10.5 fL (7.4-10.4); Monocytes % 11.4 %; Neutrophils # 5.52 10^3/uL (1.8-7.7); Neutrophils % 64.5 %; Nucleated Red Blood Cells % 0 %; Platelet Count 218 10^3/cmm (130-400); Red Blood Count 5.09 10^6/uL (4.1-5.3); White Blood Count 8.5 10^3/uL (4.0-10.0)
[2020-10-15 13:13] LABS: INR 0.99 (0.8-1.2)
[2020-10-15 13:16] LABS: D Dimer 2.34 ug/mIFEU (0-0.59)
[2020-10-15 13:18] LABS: Troponin(5th) Baseline 18 ng/L (0-15)
[2020-10-15 13:25] LABS: Albumin Level 3.5 g/dL (3.5-5.2); Alkaline Phosphatase 71 IU/L (40-130); Blood Urea Nitrogen 14 mg/dL (8-23); Calcium 8.6 mg/dL (8.5-10.5); Carbon Dioxide 23 mmol/L (22-29); Chloride 102 mmol/L (98-107); Creatinine Clr Calc Pharmacy 71.1919; Globulin 2.9 g/dL (1.3-4.6); Glucose 90 mg/dL (65-115); NT Pro B Type Natriuretic Pept 22 pg/mL (0-450); Osmolality Calculated 278 mOsm/kg (285-295); Sodium 134 mmol/L (136-145); Total Bilirubin 0.2 mg/dL (0.15-1.2); Total Protein 6.4 g/dL (6.6-8.7)
[2020-10-15 13:29] LABS: Alanine Aminotransferase 21 U/L (0-41); Anion Gap 13.5 (5-19); Aspartate Amino Transferase 33 U/L (0-40); Potassium 4.5 mmol/L (3.5-5.1)
[2020-10-15] MEDS: iohexol 350 mg/mL 100 mL Btl IV (13:32)
[2020-10-15 13:46] LABS: Glucose Point of Care 76 mg/dL (70-110)
[2020-10-15 14:14] LABS: Add Urine Microscopic? NO
[2020-10-15 14:26] LABS: Bilirubin Urine Neg (Negative); Blood Urine Neg (Negative); Glucose Urine UA Norm (Normal); Ketones Urine Negative (Negative); Leukocyte Esterase Urine Negative (Negative); Nitrate Urine Negative (Negative); Protein Urine Neg (Negative); Sulfosalicylic Acid Urine Negative (Negative); Urine Appearance Clear (CLEAR); Urine Color Straw (Yellow); Urobilinogen Urine Norm (Negative); pH Urine 8 (5-7)
[2020-10-15 14:35] LABS: Amphetamines Screen Urine Negative (Negative); Barbiturates Screen Urine Negative (Negative); Benzodiazepines Screen Urine Negative (Negative); Cocaine Screen Urine Negative (Negative); Opiate Screen Urine Negative (Negative); PCP Screen Urine Negative (Negative); THC Screen Urine Negative (Negative)
--- NOTE | 2020-10-15 14:44 | ECG_ITS ---
[facility] Test Date: 2020-10-15 Pat Name: Bhupendra Ambriz Department: Room: Gender: Male Stem Lead Former: : 1940 Requested By: Chuckie Clayton Order Number: [id number] Shakila MD: Winsome Land M.D. Measurements Intervals [place] Rate: 55 P: 63 WA: 171 QRS: -12 QRSD: 109 T: 15 QT: 413 QTc: 397 Interpretive Statements SINUS BRADYCARDIA POSSIBLE ANTERIOR MYOCARDIAL INFARCTION , OF INDETERMINATE AGE [30 ms Q WAVE IN V3/V4, OR R < 0.2 mV IN V4] Compared to ECG 10/15/2020 12:51:33 T-wave abnormality still present Possible ischemia no longer present Myocardial infarct finding still present Electronically Signed On 10-15-2020 19:44:43 CHEMICAL EQUIPMENT REPAIRER by Winsome Land M.D. [email or web address]
--- NOTE | 2020-10-15 14:54 | P.HP_ITS ---
Providers/Chief Complaint Primary Care Provider: Lisa Hyde MD Chief Complaint: chest pain, trouble finding words History of Present Illness Bhupendra Ambriz Jr is a 79 year old male with history of coronary disease status post stent, lacunar infarct presented today after chief complaint of chest pain. Patient is stating that he was fishing today 9:30 AM at his friend's [place] when he started experiencing substernal chest pain on the left side he is describing is at 4/10 pressure-like sensation, he did not pay much attention when he was catching fish however he could feel it, on his way back he started feeling dizzy around 11:30 AM and saw a friend who drives ambulance he did EKG and recommended him to go to the hospital. En route to the hospital he started experiencing word finding difficulty and mild slurring of speech around 12:30 PM which resolved at the time he arrived in the hospital. His was at the [facility] who is endorsing that he is under a lot of stress because of social dynamics and pandemic. Patient received aspirin loading dose along 2 sublingual nitroglycerin which relieved his discomfort. On arrival he did not complain of any chest pain, he had no neurological deficits, NIH 0 was not a TPA candidate because of low NIH score, CT head unremarkable CTA head and neck revealed mild atherosclerotic plaques of left ICA and external carotid arteries, he has high D-dimer for which I am starting him on therapeutic dose of Lovenox along with dual antiplatelet therapy, will get MRI, previous echo did not reveal any patent foramen ovale. EKG is sinus bradycardia troponins unremarkable Patient is stating that he has history of sinus bradycardia never experienced any symptoms. However I noticed he is also taking Coreg 6.2 hemograms daily. Chest x-ray unremarkable, CBC BMP unremarkable. Review of Systems Const: Denies: fever(s) Eyes: Denies: change in vision ENMT: Denies: throat pain Card: Denies: chest pain Resp: Denies: dyspnea GI: Denies: abdominal pain : Denies: flank pain Musc: Reports: muscle cramps Skin/Breast: Denies: rash or skin pain Neuro: Reports: vertigo; Denies: difficulty walking, frequent falls or confusion Psych: Denies: paranoia Endo: Denies: polyuria Ajit/Lymph: Denies: easy bruising All/Imm: Denies: urticaria Medications/Allergies Home Medications Medication Instructions Recorded Confirmed Last Taken Type diclofenac sodium 1 % topical gel 2 gm TOPICAL QID #100 gm 08/06/19 10/15/20 Unknown Rx fluticasone propionate 50 1 spray INTRANASAL Q12H #18.2 ml 08/06/19 10/15/20 Unknown Rx mcg/actuation nasal spray,suspension venlafaxine 150 mg See Rx Instructions .ROUTE 01/08/20 10/15/20 10/14/20 Rx capsule,extended release 24 hr .COMPLEX #90 cap tamsulosin 0.4 mg capsule 0.4 mg PO DAILY@01/20/20 10/15/20 10/15/20 History zinc acetate 50 mg PO DAILY@199910/04/20 10/15/20 10/14/20 History carvedilol 6.25 mg PO DAILY@10/15/20 10/15/20 10/15/20 History cholecalciferol (vitamin D3) 125 mcg PO DAILY@10/15/20 10/15/20 10/15/20 History [Vitamin D3] pravastatin 80 mg PO DAILY@199910/15/20 10/15/20 10/14/20 History ramipril 10 mg PO DAILY@10/15/20 10/15/20 10/15/20 History trazodone 150 mg PO BEDTIME@199910/15/20 10/15/20 10/14/20 History Allergies Allergy/AdvReac Type Severity Reaction Status Date / Time clopidogrel [From Plavix] Allergy Mild itching Verified 10/05/20 08:57 Tetracyclines Allergy Mild itching Verified 10/05/20 08:57 PFSH Acute PFSH: Medical History (Updated 10/15/20 @ 16:14 by Serena Hooks MD) 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) Atherosclerosis of coronary artery of [place] heart Bradycardia Carpal tunnel syndrome of left wrist Chronic diastolic (congestive) heart failure Depressed Dyslipidemia Dyslipidemia Essential (primary) hypertension Gastro-esophageal reflux disease without esophagitis History of colon polyps History of tick-borne disease positive serology for Erlichiosis Lacunar stroke Lumbar spondylosis Moderate obstructive sleep apnea C-pap 11-15 Neuropathy Plantar fasciitis Primary osteoarthritis, unspecified site Surgical History History of bilateral cataract extraction (~2012) History of total left knee replacement (~2011) Hx of angioplasty stents x 3, 2008; 2017 Hx of laminectomy lumbar L1-2-3-4-5 Hx of shoulder surgery (~2011) rotator cuff and tendon repairs x several per pt Family History Mother Diabetes Father CAD (coronary artery disease) Brother CAD (coronary artery disease) Sister CAD (coronary artery disease) Social History Smoking and tobacco status: former smoker Quit status (tobacco): has quit using tobacco Year quit tobacco: 40 Alcohol intake: never Lives independently: Yes Household members: spouse Housing: House Marital status: Current occupational status: retired History of recent travel: Yes ([place]) Current gender identity: Male Michelle/Mormon: Nondenominational of [place] Vitals/I&O/Wt Last Vital Signs Temp 98.0 F 10/15/20 12:36 Pulse 50 L 10/15/20 14:27 Resp 20 H 10/15/20 14:27 BP 150/84 10/15/20 14:27 Pulse Ox 97 10/15/20 14:27 Weight last 48 hrs Weight 83.915 kg Physical Exam Narrative: EXAM NARRATIVE: elderly male Looks stated age No sign of dehydration or fluid overload No neurological deficit NIH 0 No slurring of speech no visual disturbance EOMI, PERRLA S1, S2 no murmur appreciated sinus bradycardia Abdomen soft nontender bowel sound present Lower extremity no edema gangrene ulcer No acute respite distress no audible wheezing or crackles No joint swelling Appropriate mood and affect Data : 10/15/20 12:48 10/15/20 12:48 A&P Assessment and plan (1) TIA (transient ischemic attack): Status: Acute (2) Bradycardia: Status: Acute (3) D-dimer, elevated: Status: Acute (4) Angina at rest: Status: Acute Additional A&P Information TIA Symptoms started 1230 with word finding difficulty code stroke was called at the time of admission, not a TPA candidate secondary to low NIH score Symptoms resolved I will get MRI in the morning Previous echo did not reveal any [id number] shunt would not repeat at this point EKG showing sinus bradycardia Patient is stating he gets itching with Plavix however willing to try at this visit and if he develops any kind of side effect will discontinue the medication Continue dual antiplatelet therapy and high-dose statins Carotid Dopplers CT head unremarkable, CTA head and neck revealed extracranial left internal carotid less than 40% stenosis, external carotid mild stenosis ABCD 2 score 2 Unstable angina Left-sided chest pain relieved with nitro EKG unremarkable troponin not significantly high currently chest pain-free Considering high D-dimer I will keep him on therapeutic dose of Lovenox for now until we rule out PE with CTA he has received contrast study today will get CTA tomorrow EKG showing sinus bradycardia without ischemic or infarct changes Sinus bradycardia Check TSH, hold carvedilol No active symptoms however patient experienced dizziness while he was driving today Full code Cardiac diet: Patient is stating that he is getting speech therapy because he sometimes chokes on his food since his uvuloplasty for sleep apnea otherwise tolerates regular diet he avoids red meat because of history of Lyme disease DVT prophylaxis not needed currently on therapeutic Lovenox Attestations Medical Necessity Statement*: Anticipating discharge in less than 48 hours will need MRI and CTA for unstable angina and TIA Time Spent in Patient Care: (>than 50% of time spent in counselling and/or direct pt care on unit) . 45mins Coding Level of Care Code Acute Stain Sprayer for Kapil Bearden Diagnoses TIA (transient ischemic attack) G45.9 Bradycardia R00.1 D-dimer, elevated R79.89 Angina at rest I20.8
--- NOTE | 2020-10-15 15:51 | USCV_ITS ---
Bhupendra Ambriz Age: 79 Gender: M : 1940 Exam Date: 10/15/2020 16:18 Ordering Phys: Serena Hooks MD Technologist: Kitty De Leon Exam Location: [facility] [place] Indication: TIA Risk Factors: Unknown Previous Vascular Surgery: None Right Brachial BP: / Left Brachial BP: / Right Left Velocity (cm/s) Spectral Plaque Velocity (cm/s) Spectral Plaque Syst/Diast Broadening Syst/Diast Broadening 97.00/ 9.90 Prox CCA 88.20 / 14.30 Hetro 79.40/ 13.20 Mid CCA 94.80 / 18.70 88.20/ 15.40 Hetro Distal CCA 82.70 / 17.60 Hetro 80.80/ 10.90 Hetro Prox ICA 156.50/ 27.00 Hetro 79.20/ 12.40 Mid ICA 102.50/ 23.40 Min 67.50/ 15.40 Distal ICA 87.00 / 23.30 121.20 Hetro ECA 147.50 Hetro 0.92 ICA/CCA 1.89 Antegrade Vertebral Antegrade 57.30/ 15.40 cm/s 48.50/ 12.10 cm/s Bi Subclavian Bi 134.9 111.7 0 0 FINDINGS Comparison: none available. See measurements listed above. Moderate to heavy heterogeneous plaques at the left bifurcation and proximal internal carotid artery Mild to moderate dense plaques at the right bifurcation and proximal internal carotid artery Intimal thickening and scattered mild to moderate plaques in the common carotid arteries bilaterally Antegrade flow in the vertebral arteries bilaterally Normal Doppler flow velocities in the subclavian arteries and external carotid arteries bilaterally CONCLUSIONS Moderate to heavy heterogeneous plaques at the left bifurcation and proximal internal carotid artery with velocity elevation suggestive of 50 to 69% stenosis Mild to moderate dense plaques at the right bifurcation and proximal internal carotid artery suggesting less than 50% stenosis. Compared to the study from 02/21/2018, there is some worsening of stenosis on the left side Dr Winsome Land MD [facility] (Electronically Signed) Final Date: 15 October 2020 18:54 S
[2020-10-15 17:04] LABS: Thyroid Stimulating Hormone 1.83 uIU/mL (0.27-4.20)
[2020-10-15] MEDS: clopidogrel 75 mg Tablet PO (18:24)
[2020-10-15] MEDS: enoxaparin 80 mg/0.8 mL Syringe SUBCUT (18:24)
--- NOTE | 2020-10-15 18:44 | ECG_ITS ---
[facility] Test Date: 2020-10-15 Pat Name: Bhupendra Ambriz Department: Room: 112 Gender: Male Air Cargo Specialist: MILY MASONB: 1940 Requested By: Chuckie Clayton Order Number: [id number] Shakila MD: Winsome Land M.D. Measurements Intervals [place] Rate: 60 P: 88 NV: 165 QRS: 11 QRSD: 108 T: -1 QT: 396 QTc: 396 Interpretive Statements SINUS RHYTHM MODERATE VOLTAGE CRITERIA FOR LVH, CONSIDER NORMAL VARIANT [MEETS CRITERIA IN ONE OF: R(aVL), S(V1), R(V5), R(V5/V6)+S(V1)] MODERATE ST DEPRESSION [0.05+ mV ST DEPRESSION] Compared to ECG 10/15/2020 14:49:48 ST (T wave) deviation now present Sinus bradycardia no longer present Myocardial infarct finding no longer present Electronically Signed On 10-16-2020 22:44:29 CDT by Winsome Land M.D. [id number]
[2020-10-15 19:20] LABS: Troponin 5 6HR 20.11 ng/L (0-15); Troponin 5 6HR Delta 2.11 ng/L (0-12)
[2020-10-15] MEDS: atorvastatin 40 mg Tablet 80 MG PO (20:28)
--- NOTE | 2020-10-15 23:01 | PC.NURSE ---
REPORT RECEIVED FROM JANIS LOO. PT DENIES PAIN AT THIS TIME. PT ORIENTATED TO ROOM. WILL CONTINUE TO MONITOR.
[2020-10-16] VITALS (8 sets, daily range): BP systolic 104–144; BP diastolic 62–77; PULSE 52–59; RESP 12–18; TEMP 36.4–37.1; O2SAT 92–98
[2020-10-16] MEDS: enoxaparin 80 mg/0.8 mL Syringe SUBCUT (04:03)
--- NOTE | 2020-10-16 05:36 | PC.NURSE ---
PT RESTING IN BED. PT DENIES PAIN AT THIS TIME. WILL CONTINUE TO MONITOR.
[2020-10-16] MEDS: lisinopril 20 mg Tablet 40 MG PO (06:27)
[2020-10-16] MEDS: tamsulosin 0.4 mg Capsule PO (06:27)
--- NOTE | 2020-10-16 07:37 | CTR_ITS ---
PROCEDURE INFORMATION: Exam: CT Angiography Chest With Contrast Exam date and time: 10/16/2020 8:14 AM Age: 79 years old Clinical indication: Shortness of breath; Prior surgery; Surgery type: Stents; Additional info: Pe TECHNIQUE: Imaging protocol: Computed tomographic angiography of the chest with contrast. 3D rendering (Not supervised by radiologist): MIP and/or 3D reconstructed images were created by the technologist. Radiation optimization: All CT scans at this facility use at least one of these dose optimization techniques: automated exposure control; mA and/or kV adjustment per patient size (includes targeted exams where dose is matched to clinical indication); or iterative reconstruction. Contrast material: OMNI 350; Contrast volume: 76 ml; Contrast route: INTRAVENOUS (IV); COMPARISON: CT chest wo con [id number] 03/20/2019 11:42 AM RADIATION DOSE METRICS: Total DLP (mGy-cm): 503.56 FINDINGS: Pulmonary arteries: Normal. No pulmonary emboli. Aorta: There is calcification of the aorta but there is no aneurysm. Lungs: There is mild atelectasis in the lung bases and mild fibrosis in the right middle lobe. There is no pneumonia. Pleural spaces: Unremarkable. No pneumothorax. No pleural effusion. Heart: The heart is mildly enlarged. There is calcification of the coronary arteries. Mediastinal space: Small sliding hiatal hernia. Lymph nodes: There is a small benign calcified granuloma in the left lung with small benign calcified left pulmonary hilar lymph nodes. Liver: Multiple small benign cysts are present in the liver with the largest in the left lobe measuring 2 cm in diameter. Kidneys and ureters: There is a 2.5 cm benign cyst in the superior pole of the right kidney. Bones/joints: Chronic degenerative changes are present in the spine with joint space narrowing sclerosis and osteophytes. Prominent chronic degenerative changes are present in the right shoulder joint. Patient has had orthopedic surgery in both shoulders. Soft tissues: Unremarkable. CT/CT angio chest PE protcl [id number] IMPRESSION: 1. No evidence of pulmonary embolus or aortic aneurysm/dissection. 2. Benign calcified granulomas disease. 3. Coronary artery calcification. Mild cardiac enlargement. 4. Small hiatal hernia. COMMENTS: Consistent with the [employer]'s Incidental Findings Committee white paper (J Am Noé Radiol 2018): Any incidental renal lesion less than 1 cm or classified as too small to characterize, or any incidental cystic renal lesion characterized as simple-appearing, is likely benign. No follow-up imaging is recommended for these lesions per consensus recommendations based on imaging criteria. Radiation Dose CTDIVOL = (mGy): DLP = 503.56 (mGy-cm)
[2020-10-16] MEDS: aspirin 81 mg EC Tablet PO (08:48)
[2020-10-16] MEDS: clopidogrel 75 mg Tablet PO (08:48)
--- NOTE | 2020-10-16 11:46 | P.DS_ITS ---
Discharge Providers Date of Admission: 10/15/20 14:53 Date of Discharge: October 16, 2020 Attending Provider at Admission: Serena Hooks MD Attending Provider at Discharge: Serena Hooks MD Primary Care Provider: Lisa Hyde MD Diagnoses at Discharge Discharge Diagnosis (1) TIA (transient ischemic attack): Status: Acute (2) Bradycardia: Status: Acute (3) D-dimer, elevated: Status: Acute (4) Angina at rest: Status: Acute Reason for Visit Reason for Visit: chest pain, trouble finding words Hospital Course Hospital Course Bhupendra Ambriz Jr is a 79 year old male with history of coronary disease status post stent, lacunar infarct presented today after chief complaint of chest pain. Patient is stating that he was fishing today 9:30 AM at his friend's [employer] [place] when he started experiencing substernal chest pain on the left side he is describing is at 4/10 pressure-like sensation, he did not pay much attention when he was catching fish however he could feel it, on his way back he started feeling dizzy around 11:30 AM and saw a friend who drives ambulance he did EKG and recommended him to go to the hospital. En route to the hospital he started experiencing word finding difficulty and mild slurring of speech around 12:30 PM which resolved at the time he arrived in the hospital. His was at the bedside who is endorsing that he is under a lot of stress because of social dynamics and pandemic. Patient received aspirin loading dose along 2 sublingual nitroglycerin which relieved his discomfort. On arrival he did not complain of any chest pain, he had no neurological deficits, NIH 0 was not a TPA candidate because of low NIH score, CT head unremarkable CTA head and neck were remarkable. He had high D-dimer for which I started him on therapeutic dose of Lovenox along with dual antiplatelet therapy at the time of admission, previous echo did not reveal any patent foramen ovale. EKG sinus bradycardia, troponins unremarkable Throughout hospitalization he never experienced similar symptoms. Carvedilol was discontinued because of bradycardia, heart rate fluctuated between 55-60 he remained hemodynamically stable no recurrence of chest pain. TSH normal. Decision was made to discharge patient on aspirin, Plavix for 3 weeks and resume aspirin afterwards with high-dose statins and follow-up with Dr. Swift and neurology. Patient is agreeable and wants to see Dr. Land before seeing cardiothoracic or neurologist. Carotid Doppler: Moderate to heavy heterogeneous plaques at the left bifurcation and proximal internal carotid artery with velocity elevation suggestive of 50 to 69% stenosis Mild to moderate dense plaques at the right bifurcation and proximal internal carotid artery suggesting less than 50% stenosis. Compared to the study from 02/21/2018, there is some worsening of stenosis on the left mayo CTA head and neck: IMPRESSION: 1. No acute findings. 2. Bilateral carotid and vertebral arteries widely patent. Calcified plaque at the origin of the left internal carotid artery causes focal mild stenosis. 3. Calcified plaque causing focal stenosis of the bilateral external carotid arteries at their origins, moderate on the right and severe on the left. Both vessels well opacified distally. Physical Exam Narrative: EXAM NARRATIVE: Patient was laying comfortably in his bed without any active discomfort S1, S2 sinus bradycardia no signs of heart failure No neurological deficits Abdomen soft Appropriate mood and affect No acute respiratory distress Discharge Data Data Completed and Pending: Completed Studies During Hospitalization Category Date Time Status CT angio chest PE protcl [id number] Stat Cat Scan 10/16/20 07:[address] angio headneck * [id number] Stat Cat Scan 10/15/20 12:[address] head wo con* [id number] Stat Cat Scan 10/15/20 12:45 Completed XR chest 1V mikey ble [id number] Stat Exams 10/15/20 12:43 Completed CV carotid duplex BI* [id number] Routine Ultrasound 10/15/20 15:51 Completed Pending at discharge Category Date Time Status MR head wo con* [id number] Routine MRI 10/15/20 15:51 Ordered Labs from last 24 hours 10/15/20 10/15/20 10/15/20 18:40 14:40 14:40 WBC RBC Hgb Hct MCV MCH MCHC RDW Plt Count MPV Neut % (Auto) Lymph % (Auto) [place] % (Auto) Eos % (Auto) Baso % (Auto) Neut # (Auto) Lymph # (Auto) [place] # (Auto) Eos # (Auto) Baso # (Auto) Nucleated RBC % (a uto) Nucleated RBCs # PT INR APTT D-Dimer Sodium Potassium Chloride Carbon Dioxide Anion Gap BUN Creatinine GFR Calculation Glucose POC Glucose Calculated Osmolal ity Calcium Total Bilirubin AST ALT Alkaline Phosphata se Troponin T Baselin e Troponin T 120 Min [place] 20.30 H Delta Troponin T 2.30 Troponin T Hi Sens 6Hr 20.11 H Troponin T Hi Sens 6Hr Delta 2.11 NT-Pro-B Natriuret Pep Total Protein Albumin Globulin TSH 1.83 Urine Color Urine Appearance Urine pH Ur Specific Gravit y Urine Protein Urine Glucose (UA) Urine Ketones Urine Blood Urine Nitrate Urine Bilirubin Prot Sulfosalicyli c Acd Urine Urobilinogen Ur Leukocyte Nurys ase Urine Opiates Scre en Ur Barbiturates Sc reen Ur Phencyclidine S crn Ur Amphetamines Sc reen U Benzodiazepines Scrn Urine Cocaine Scre en U Marijuana (THC) Screen 10/15/20 10/15/20 10/15/20 13:40 12:48 12:48 WBC RBC Hgb Hct MCV MCH MCHC RDW Plt Count MPV Neut % (Auto) Lymph % (Auto) [place] % (Auto) Eos % (Auto) Baso % (Auto) Neut # (Auto) Lymph # (Auto) [place] # (Auto) Eos # (Auto) Baso # (Auto) Nucleated RBC % (a uto) Nucleated RBCs # PT INR APTT D-Dimer Sodium 134 L Potassium 4.5 Chloride 102 Carbon Dioxide 23 Anion Gap 13.5 BUN 14 Creatinine 0.9 GFR Calculation Not Reportable Glucose 90 POC Glucose 76 Calculated Osmolal ity 278 L Calcium 8.6 Total Bilirubin 0.2 AST 33 ALT 21 Alkaline Phosphata se 71 Troponin T Baselin e 18 H Troponin T 120 Min [place] Delta Troponin T Troponin T Hi Sens 6Hr Troponin T Hi Sens 6Hr Delta NT-Pro-B Natriuret Pep 22 Total Protein 6.4 L Albumin 3.5 Globulin 2.9 TSH Urine Color Urine Appearance Urine pH Ur Specific Gravit y Urine Protein Urine Glucose (UA) Urine Ketones Urine Blood Urine Nitrate Urine Bilirubin Prot Sulfosalicyli c Acd Urine Urobilinogen Ur Leukocyte Nurys ase Urine Opiates Scre en Ur Barbiturates Sc reen Ur Phencyclidine S crn Ur Amphetamines Sc reen U Benzodiazepines Scrn Urine Cocaine Scre en U Marijuana (THC) Screen 10/15/20 10/15/20 10/15/20 12:48 12:48 01:50 WBC 8.5 RBC 5.09 Hgb 14.8 Hct 46.2 MCV 90.8 MCH 29.1 MCHC 32.0 RDW 14.0 Plt Count 218 MPV 10.5 H Neut % (Auto) 64.5 Lymph % (Auto) 21.3 [place] % (Auto) 11.4 Eos % (Auto) 1.9 Baso % (Auto) 0.5 Neut # (Auto) 5.52 Lymph # (Auto) 1.8 [place] # (Auto) 1.0 H Eos # (Auto) 0.2 Baso # (Auto) 0.0 Nucleated RBC % (a uto) 0 Nucleated RBCs # 0.0 PT 13.40 INR 0.99 APTT 30.0 D-Dimer 2.34 H Sodium Potassium Chloride Carbon Dioxide Anion Gap BUN Creatinine GFR Calculation Glucose POC Glucose Calculated Osmolal ity Calcium Total Bilirubin AST ALT Alkaline Phosphata se Troponin T Baselin e Troponin T 120 Min [place] Delta Troponin T Troponin T Hi Sens 6Hr Troponin T Hi Sens 6Hr Delta NT-Pro-B Natriuret Pep Total Protein Albumin Globulin TSH Urine Color Urine Appearance Urine pH Ur Specific Gravit y Urine Protein Urine Glucose (UA) Urine Ketones Urine Blood Urine Nitrate Urine Bilirubin Prot Sulfosalicyli c Acd Urine Urobilinogen Ur Leukocyte Nurys ase Urine Opiates Scre en Negative Ur Barbiturates Sc reen Negative Ur Phencyclidine S crn Negative Ur Amphetamines Sc reen Negative U Benzodiazepines Scrn Negative Urine Cocaine Scre en Negative U Marijuana (THC) Screen Negative 10/15/20 01:50 WBC RBC Hgb Hct MCV MCH MCHC RDW Plt Count MPV Neut % (Auto) Lymph % (Auto) [place] % (Auto) Eos % (Auto) Baso % (Auto) Neut # (Auto) Lymph # (Auto) [place] # (Auto) Eos # (Auto) Baso # (Auto) Nucleated RBC % (a uto) Nucleated RBCs # PT INR APTT D-Dimer Sodium Potassium Chloride Carbon Dioxide Anion Gap BUN Creatinine GFR Calculation Glucose POC Glucose Calculated Osmolal ity Calcium Total Bilirubin AST ALT Alkaline Phosphata se Troponin T Baselin e Troponin T 120 Min [place] Delta Troponin T Troponin T Hi Sens 6Hr Troponin T Hi Sens 6Hr Delta NT-Pro-B Natriuret Pep Total Protein Albumin Globulin TSH Urine Color Straw Urine Appearance Clear Urine pH 8 H Ur Specific Gravit y 1.010 Urine Protein Neg Urine Glucose (UA) Norm Urine Ketones Negative Urine Blood Neg Urine Nitrate Negative Urine Bilirubin Neg Prot Sulfosalicyli c Acd Negative Urine Urobilinogen Norm Ur Leukocyte Nurys ase Negative Urine Opiates Scre en Ur Barbiturates Sc reen Ur Phencyclidine S crn Ur Amphetamines Sc reen U Benzodiazepines Scrn Urine Cocaine Scre en U Marijuana (THC) Screen Vitals: Last Vital Signs Temp 98.8 F 10/16/20 11:04 Pulse 57 L 10/16/20 11:04 Resp 12 10/16/20 11:04 BP 104/62 10/16/20 11:04 Pulse Ox 98 10/16/20 11:04 Discharge Plan Discharge Patient Disposition: Home Condition: Stable Prescriptions: New clopidogrel 75 mg Tablet 75 mg PO DAILY 21 Days Qty: 21 RF: 0 aspirin 81 mg Tablet,Delayed Release (Dr/Ec) 81 mg PO DAILY 30 Days Qty: 30 RF: 1 atorvastatin 40 mg Tablet 80 mg PO DAILY@1999 30 Days Qty: 30 RF: 2 Continued tamsulosin 0.4 mg capsule 0.4 mg PO DAILY@ RF: 0 zinc acetate 50 mg PO DAILY@1999 RF: 0 fluticasone propionate [Flonase Allergy Relief] 50 mcg/actuation spray,suspension 1 spray INTRANASAL Q12H Qty: 18.2 RF: 2 diclofenac sodium [Voltaren] 1 % gel 2 gm TOPICAL QID Qty: 100 RF: 0 venlafaxine 150 mg capsule,extended release 24hr See Rx Instructions .ROUTE .COMPLEX Qty: 90 RF: 3 Vitamin D3 125 mcg (5,000 unit) Tablet 125 mcg PO DAILY@ RF: 0 trazodone 100 mg tablet 150 mg PO BEDTIME@1999 RF: 0 ramipril 10 mg capsule 10 mg PO DAILY@ RF: 0 Discontinued carvedilol 6.25 mg tablet 6.25 mg PO DAILY@ RF: 0 pravastatin 80 mg tablet 80 mg PO DAILY@1999 RF: 0 Discharge Orders: Discharge Order (Routine); Ordered 10/16/20 Ordered By: Serena Hooks Discharge Diet: Cardiac Discharge Activity: Increase activity as tolerated Patient Instructions: Aspirin (By mouth), Atorvastatin (By mouth), Clopidogrel (By mouth), Transient Ischemic Attack (DC), Bradycardia (DC), Chest Pain Stoplight Activity Restrictions/Additional Instructions: There is stenosis of internal carotid arteries bilaterally, for which you will need to see cardiothoracic surgeon for possible carotid intervention Also follow-up with neurologist and keep taking your aspirin and Plavix for 21 days and then continue aspirin afterwards I am also giving you a atorvastatin 80 mg daily for which you have to take long- term You have diagnosis of TIA, this is considered a minor stroke for prevention of major stroke your carotid vessels evaluation is very important I am also discontinuing your Coreg because of bradycardia. You can resume your lisinopril. Discharge Attestations Time Spent in Discharge Care*: greater than 30 min Quality Metrics Clinical Quality Measures During this hospital stay, did patient experience: Stroke Contraindication to Antithrombotic: Antithrombotic prescribed Contraindication to Anticoagulation: Medical contraindication Contraindication to Statin: Statin prescribed Contraindication to antithrombotic day 2: Antithrombotic given Contraindication to tPA: Treatment not indicated Onset of Symptoms Date: 10/15/20 Onset of Symptoms Time: 12:29 Symptom Onset Unknown: No Reason stroke education not provided: Stroke education provided to patient and Stroke education provided to family/guardian Pt Provided Written Stroke Discharge Instructions: Patient given written information and None Coding Level of Care Code Acute Chg FW DC note Diagnoses TIA (transient ischemic attack) G45.9 Bradycardia R00.1 D-dimer, elevated R79.89 Angina at rest I20.8
--- NOTE | 2020-10-16 13:33 | PC.NURSE ---
PT provided with discharge paperwork, patient understands instructions and follow up appointment. Instructions provided to patient and . Patient had no further questions, VS stable upon departure, patient wheeled out via wheelchair with spouse.
== END 2020-10-16 13:00 | disposition home or self-care (01) ==
LOC: ER 15:11 → CSU 15:20
PROVIDERS: Admitting Provider Internal Medicine; Emergency Provider Family Medicine; PCP Family Medicine; Visit Provider Internal Medicine
DX: G45.9 Transient cerebral ischemic attack, unspecified (principal); R00.1 Bradycardia, unspecified; R79.89 Other specified abnormal findings of blood chemistry; I20.8 Other forms of angina pectoris; I65.23 Occlusion and stenosis of bilateral carotid arteries; I25.10 Atherosclerotic heart disease of native coronary artery without angina pectoris; M81.0 Age-related osteoporosis without current pathological fracture; E78.5 Hyperlipidemia, unspecified; I10 Essential (primary) hypertension; Z87.891 Personal history of nicotine dependence
CPT/HCPCS: 36415; 36416; 70450; 70496; 70498; 71045; 71275; 80053; 80306; 81003; 82962; 83880; 84443; 84484; 85025; 85378; 85610; 85730; 93005; 93880; 94660; 96372; 99285; G0378; J1650; Q9967

== ENCOUNTER 2020-11-03 06:00 | Outpatient (RCR) | payer MEDICARE, OTHER, SELFPAY | END 2020-12-02 23:59 | disposition home or self-care (01) | LOC: TST 06:00 | PROVIDERS: PCP Family Medicine; Referring Provider Family Medicine; Visit Provider Family Medicine | DX: R53.1 Weakness (principal); I69.80 Unspecified sequelae of other cerebrovascular disease | CPT/HCPCS: 92507 ==

== ENCOUNTER 2020-11-16 06:00 | Outpatient (RCR) | payer MEDICARE, OTHER, SELFPAY | END 2020-12-02 23:59 | disposition home or self-care (01) | LOC: TPT 06:00 | PROVIDERS: PCP Family Medicine; Referring Provider Family Medicine; Visit Provider Family Medicine | DX: I69.90 Unspecified sequelae of unspecified cerebrovascular disease (principal); R53.1 Weakness | CPT/HCPCS: 97110; 97161 ==

== ENCOUNTER → 2020-11-17 08:54 | Outpatient (BNVA) | payer MEDICARE, OTHER, SELFPAY | PROVIDERS: PCP Family Medicine; Visit Provider Surgery | DX: R13.10 Dysphagia, unspecified (principal); Z20.822 Contact with and (suspected) exposure to COVID-19 | CPT/HCPCS: 87635 ==

== ENCOUNTER 2020-11-24 08:26 | Day surgery (SDC) | payer MEDICARE, OTHER, SELFPAY ==
[2020-11-22 13:06] VITALS: BMI 26.6
[2020-11-24 09:14] VITALS: BP 160/81; PULSE 58; RESP 16; TEMP 36.1; O2SAT 98
--- NOTE | 2020-11-24 09:20 | ANES.PREANE2 ---
Pre-Anesthetic Assessment Pre-Anesthetic Assessment: Height/Weight: Height 1.7 m Weight 77.111 kg Preop Diagnosis: upper gi symptoms Proposed Procedure: Operation Date: 11/24/20 10:00 Proposed Procedures p EGD Dilation W/ Balloon 23922 r13.10(Not Applicable) - Cesar Becerril MD Was Beta Tahir taken within 24 hours: N/A Was Clonidine taken within 24 hours: N/A Social: Social History: No alcohol and No tobacco Exam: Pre-Anes Outpt Exam: alert, oriented x 3, clear to auscultation bilaterally and regular rate & rhythm Airway: Submandibular: WNL Cervical ROM: WNL MP: 3 Dentition: Full CV/HEM: CV/HEM: CAD, HTN and PVD GI: GI: GERD Comments: Dysphagia Neuropsych: Neuropsych: CVA and Depression Anesthetic Plan: ASA status: 3 Anesthesia: MAC Risk of > 500 ml blood loss (7ml/kg in children): No PFSH Anesthesia PFSH: Medical History 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) Atherosclerosis of coronary artery of [place] heart Bradycardia Carpal tunnel syndrome of left wrist Chronic diastolic (congestive) heart failure Depressed Dyslipidemia Essential (primary) hypertension Gastro-esophageal reflux disease without esophagitis History of colon polyps History of tick-borne disease positive serology for Erlichiosis Lacunar stroke Lumbar spondylosis Moderate obstructive sleep apnea C-pap 11-15 Neuropathy Plantar fasciitis Primary osteoarthritis, unspecified site Surgical History History of bilateral cataract extraction (~2012) History of colonoscopy with polypectomy History of total left knee replacement (~2011) Hx of angioplasty stents x 3, 2008; 2017 Hx of laminectomy lumbar L1-2-3-4-5 Hx of shoulder surgery (~2011) rotator cuff and tendon repairs x several per pt Family History Mother Diabetes Dementia Father CAD (coronary artery disease) Brother CAD (coronary artery disease) Sister CAD (coronary artery disease) Denies family history of Clotting disorder Chronic kidney disease (CKD) Suicide Anesthesia complication Bleeding disorder Lung disease Cancer Stroke Social History Smoking and tobacco status: former smoker Quit status (tobacco): has quit using tobacco Year quit tobacco: 40 Alcohol intake: never Lives independently: Yes Household members: spouse Housing: House Marital status: Current occupational status: retired History of recent travel: Yes ([place]) Current gender identity: Male Michelle/Taoism: [employer] Data Anesthesia Cardiac Studies: No Data to Display
--- NOTE | 2020-11-24 09:41 | W.PM.OPSUD ---
Surgery/Procedure H&P Update DATE OF PROCEDURE: November 24, 2020 DATE H&P PERFORMED: 10/24/20 H&P UPDATE INFORMATION: I have reviewed H&P completed within last 30 days, I have examined patient prior to procedure and No changes to prior documentation PREOP DIAGNOSIS: upper gi symptoms PLANNED PROCEDURE: Operation Date: 11/24/20 10:00 Proposed Procedures p EGD Dilation W/ Balloon 36542 r13.10(Not Applicable) - Cesar Becerril MD
[2020-11-24] MEDS: sodium chloride 0.9% 1,000 ML 30 ML IV (09:45)
[2020-11-24 11:38] VITALS: BP 155/81; PULSE 48; RESP 16; TEMP 36.1; O2SAT 100
[2020-11-24 11:45] VITALS: BP 152/79; PULSE 47; RESP 18; O2SAT 97
[2020-11-24 11:50] VITALS: BP 148/78; PULSE 54; RESP 17; TEMP 36.5; O2SAT 97
[2020-11-24 11:58] VITALS: BP 166/84; PULSE 52; RESP 20; O2SAT 96
[2020-11-24 12:24] VITALS: BP 173/87; PULSE 45; RESP 18; O2SAT 93
--- NOTE | 2020-11-24 13:10 | ANE.PACU2 ---
Inpatient post-anesthesia follow up: Airway intact: Yes Vital signs: Temperature 97.7 F Pulse Rate 45 Respiratory Rate 18 Blood Pressure 173/87 Pulse Oximetry 93 Oxygen Delivery Me thod Room Air Oxygen Flow Rate 8 Fraction of Inspir ed Oxygen Hydration adequate: Yes Nausea and vomiting: No Pain level: 1 Mental status: Baseline Additional Comments: Laryngogspasm during procedure, did well postop.
== END 2020-11-24 12:35 | disposition home or self-care (01) ==
PROVIDERS: PCP Family Medicine; Visit Provider Surgery
DX: R13.10 Dysphagia, unspecified (principal); K22.2 Esophageal obstruction; K29.70 Gastritis, unspecified, without bleeding; K29.81 Duodenitis with bleeding; Z79.82 Long term (current) use of aspirin; M81.0 Age-related osteoporosis without current pathological fracture; E78.5 Hyperlipidemia, unspecified; I10 Essential (primary) hypertension; Z87.891 Personal history of nicotine dependence; I25.10 Atherosclerotic heart disease of native coronary artery without angina pectoris; Z86.73 Personal history of transient ischemic attack (TIA), and cerebral infarction without residual deficits
CPT/HCPCS: 43249; 96360; J2704; J7030

== ENCOUNTER 2020-12-03 06:00 | Outpatient (RCR) | payer MEDICARE, OTHER, SELFPAY | END 2021-01-02 23:59 | disposition home or self-care (01) | LOC: TPT 06:00 | PROVIDERS: PCP Family Medicine; Referring Provider Family Medicine; Visit Provider Family Medicine | DX: R53.1 Weakness (principal) | CPT/HCPCS: 97110; 97140; 97164 ==

== ENCOUNTER 2020-12-19 10:39 | Outpatient (CLI) | payer MEDICARE, OTHER, SELFPAY ==
--- NOTE | 2020-12-19 10:57 | XR_ITS ---
WS: [id number] LEFT HIP HISTORY: M25.552 - Pain in left hip COMPARISON: 01/06/2018 LEFT hip: No acute fracture or dislocation. Mild osteophytic ridging around the acetabulum. Enthesopa thy over the greater trochanter. There is also enthesopathy at the inferior pubic rami. Parasymphyseal necrosis. XR/XR hip LT 2-3V wo/w pel* [id number] IMPRESSION: 1. No hip fracture. 2. Mild LEFT hip joint osteoarthritis.
== END 2020-12-19 10:40 | disposition home or self-care (01) ==
PROVIDERS: PCP Family Medicine; Visit Provider Family Medicine
DX: M25.552 Pain in left hip (principal); M16.12 Unilateral primary osteoarthritis, left hip
CPT/HCPCS: 73502

== ENCOUNTER 2020-12-20 11:15 | Emergency (ER) | payer MEDICARE, OTHER, SELFPAY ==
[2020-12-20 11:43] VITALS: BP 155/79; PULSE 55; RESP 16; TEMP 36.6; O2SAT 98; BMI 28.1
--- NOTE | 2020-12-20 12:32 | XRR_ITS ---
PROCEDURE INFORMATION: Exam: XR Left Hip Exam date and time: 12/20/2020 12:50 PM Age: 80 years old Clinical indication: Left hip; Patient HX: Lt hip pain x 3 weeks getting worse after therapy TECHNIQUE: Imaging protocol: XR Left hip. Views: 2 or 3 views hip with pelvis when performed. COMPARISON: CR XR hip LT 2-3V wo/w pel* [id number] 12/19/2020 11:07 AM FINDINGS: Bones/joints: No fracture or other acute bone or joint abnormalities are seen in the left hip. Mild degenerative changes are present with small osteophyte formation. No destructive or erosive changes are seen. Soft tissues: Unremarkable. XR/XR hip LT 2-3V wo/w pel* [id number] IMPRESSION: Mild chronic degenerative disease. No acute abnormality.
--- NOTE | 2020-12-20 14:48 | ED_ITS ---
HPI - Extremity Problem General: Chief complaint: Extremity Problem,Nontraumatic Stated complaint: pain in left hip Time Seen by Provider: 12/20/20 14:29 Source: patient Mode of arrival: ambulatory Limitations: no limitations History of Present Illness: HPI Narrative: Patient is a nice 80-year-old gentleman who presents to ED today along with his for evaluation of left hip pain. Patient tells me approximately 3 weeks ago while at a physical therapy session (states he is doing physical therapy for lower extremity conditioning and strengthening) he states the physical therapist had him lying on his right side with his knees to his chest. He states his left leg was then straightened and extended behind him. He states he immediately felt something in his left hip and has had discomfort since. He tells me he does not have much pain with immobilization but states pain is progressively worsening with ambulation and weight bearing. He has been using a crutch and states that does seem to help a lot. He has not noticed any redness or warmth to the joint. There is no radicular pain into his extremity. He has not noticed any color/temperature changes to the extremity. Patient had XRs ordered by PCP yesterday and performed but results are unknown. MD Complaint: joint pain Onset (ago): week(s) Pain Consistency: constant Location: left and lower extremity Radiation: none Relieving factors: immobilization Exacerbating factors: range of motion, weight bearing and walking Associated symptoms: Reports no associated symptoms; Deny chest pain or fever(s) Review of Systems Const: Denies: fever(s), chills, body aches, fatigue or malaise Card: Denies: chest pain Resp: Denies: dyspnea : Denies: flank pain or dysuria Musc: Reports: joint pain (L hip); Denies: neck pain, back pain, extremity pain, extremity swelling or joint swelling Neuro: Reports: difficulty walking (secondary to discomfort); Denies: numbness in extremities, weakness in extremities or sensory changes [facility] ED PFSH: Medical History 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) Atherosclerosis of coronary artery of [place] heart Bradycardia Carpal tunnel syndrome of left wrist Chronic diastolic (congestive) heart failure Depressed Dyslipidemia Essential (primary) hypertension Gastro-esophageal reflux disease without esophagitis History of colon polyps History of tick-borne disease positive serology for Erlichiosis Lacunar stroke Lumbar spondylosis Moderate obstructive sleep apnea C-pap 11-15 Neuropathy Plantar fasciitis Primary osteoarthritis, unspecified site Surgical History H/O esophagogastroduodenoscopy with dilation of esophageal stricture History of bilateral cataract extraction (~2012) History of colonoscopy with polypectomy History of total left knee replacement (~2011) Hx of angioplasty stents x 3, 2008; 2017 Hx of laminectomy lumbar L1-2-3-4-5 Hx of shoulder surgery (~2011) rotator cuff and tendon repairs x several per pt Family History Mother Diabetes Dementia Father CAD (coronary artery disease) Brother CAD (coronary artery disease) Sister CAD (coronary artery disease) Denies family history of Clotting disorder Chronic kidney disease (CKD) Suicide Anesthesia complication Bleeding disorder Lung disease Cancer Stroke Social History Smoking and tobacco status: former smoker Quit status (tobacco): has quit using tobacco Year quit tobacco: 40 Alcohol intake: never Lives independently: Yes Household members: spouse Housing: House Marital status: Current occupational status: retired History of recent travel: Yes ([place]) Current gender identity: Male Michelle/Lutheran: [employer] Physical Exam Const: COMMON NORMALS: no acute distress, average body habitus, patient oriented x3, no limitations, healthy appearing, alert and well nourished ORIENTATION/CONSCIOUSNESS: Yes awake, Yes oriented to person, Yes oriented to place and Yes oriented to time Back/Pelvis: COMMON NORMALS: thoracic and lumbar spine normal to inspection, no thoracic nor lumbar tenderness, thoraco-lumbar ROM normal and straight leg raise negative bilaterally LUMBAR SPINE/LOWER BACK: Yes normal to inspection and Yes lumbar ROM normal PELVIS: Yes buttocks normal SACROILIAC JOINTS: Yes SI joints normal Extremity: COMMON NORMALS: normal to inspection, capillary refill normal, no joint enlargement, no clubbing, cyanosis or edema, no calf tenderness and no pedal edema LEFT LOWER EXTREMITY: Yes hip joint Left hip: Yes inspection (normal visual inspection ), Yes palpation (TTP posterior/lateral), Yes ROM (pt can raise/hold extremity off bed; TTP adduction/extension) and Yes neurovascular exam (normal) Neuro: COMMON NORMALS: patient oriented x3, moves all extremities, no focal motor deficits and no sensory deficits noted SENSORIUM/ORIENTATION: Yes alert, Yes oriented to person, Yes oriented to place and Yes oriented to time Skin: COMMON NORMALS: no rashes or lesions noted GENERAL SKIN EXAM: no rashes or lesions noted TRAUMA: no lacerations or abrasions Course Vital Signs: Vital signs: Vital Signs Temperature 97.8 F 12/20/20 11:43 Pulse Rate 55 L 12/20/20 11:43 Respiratory Rate 16 12/20/20 11:43 Blood Pressure 155/79 12/20/20 11:43 Pulse Oximetry 98 12/20/20 11:43 MDM - Extremity (Nontraumatic) MDM Narrative: Medical decision making narrative: XRs ordered from different provider while in triage. Results of yesterday's XR and today's were reviewed and normal. Will treat with NSAIDS, steroids, and muscle relaxers. Recommend follow up with PCP and possibly continuing physical therapy for new injury. Imaging Data^: XR L hip/pelvis: Radiologist's impression: [address] [address] XRay Report Signed Patient: Bhupendra Ambriz Unit #: [id number] : 1940 Age/Sex: 80 / M ADM Date: 12/20/20 Loc: ER Room/Bed: Attending Dr: Ordering Provider/Ordering MD: Beltran Coffey DO Date of Service: 12/20/20 Procedure(s): XR hip LT 2-3V wo/w pel* [id number] Accession Number(s): [id number] Report Number: [id number] PROCEDURE INFORMATION: Exam: XR Left Hip Exam date and time: 12/20/2020 12:50 PM Age: 80 years old Clinical indication: Left hip; Patient HX: Lt hip pain x 3 weeks getting worse after therapy TECHNIQUE: Imaging protocol: XR Left hip. Views: 2 or 3 views hip with pelvis when performed. COMPARISON: CR XR hip LT 2-3V wo/w pel* [id number] 12/19/2020 11:07 AM FINDINGS: Bones/joints: No fracture or other acute bone or joint abnormalities are seen in the left hip. Mild degenerative changes are present with small osteophyte formation. No destructive or erosive changes are seen. Soft tissues: Unremarkable. XR/XR hip LT 2-3V wo/w pel* [id number] IMPRESSION: Mild chronic degenerative disease. No acute abnormality. Dictated By: Constantine Koehler Signed By: Constantine Koehler Signed Date/Time: 12/20/201312 DD/ 11 Discharge Plan Discharge Patient Disposition: Home Clinical Impression: Acute pain of left hip Condition: Stable Prescriptions: New cyclobenzaprine 10 mg tablet 10 mg PO TID Qty: 14 RF: 0 prednisone 10 mg tablet 60 mg PO DAILY 5 Days Qty: 30 RF: 0 ibuprofen 600 mg tablet 600 mg PO Q8H PRN (Reason: pain) Qty: 20 RF: 0 Discontinued diclofenac sodium [Voltaren] 1 % gel 2 gm TOPICAL QID Qty: 100 RF: 0 celecoxib [Celebrex] 200 mg capsule 200 mg PO BID Qty: 60 RF: 0 methylprednisolone [Medrol (Ajit)] 4 mg tablets,dose pack See Rx Instructions PO PER PKG DIR Qty: 21 RF: 0 No Action tamsulosin 0.4 mg capsule 0.4 mg PO DAILY@07 RF: 0 fluticasone propionate [Flonase Allergy Relief] 50 mcg/actuation spray,suspension 1 spray INTRANASAL Q12H Qty: 18.2 RF: 2 Protonix 40 mg tablet,delayed release (DR/EC) 40 mg PO DAILY 42 Days Qty: 45 RF: 3 venlafaxine 150 mg capsule,extended release 24hr See Rx Instructions .ROUTE .COMPLEX Qty: 90 RF: 0 ramipril 10 mg capsule 10 mg PO DAILY@ Qty: 90 RF: 0 atorvastatin 40 mg Tablet 80 mg PO DAILY@1999 30 Days Qty: 30 RF: 2 aspirin 81 mg Tablet,Delayed Release (Dr/Ec) 81 mg PO DAILY 30 Days Qty: 30 RF: 1 trazodone 100 mg tablet 100 mg PO BEDTIME@1999 RF: 0 Discharge Orders: Discharge ED (Routine); Ordered 12/20/20 Ordered By: Lore Shah Referrals: Lisa Hyde MD [Primary Care Provider] - Activity Restrictions/Additional Instructions: As we discussed we will place you on steroids, a muscle relaxer, and anti-infla mmatories to see if this will help with your discomfort. You have told me you are no longer taking the Celebrex, Voltaren gel, or other anti-inflammatories. Please follow-up with primary care to see if they would like you to continue with physical therapy. They may further re-evaluate your hip pain if the medications do not seem to help alleviate your discomfort. Coding Level of Care Code ED Reporter for Kapil Bearden
[2020-12-20] MEDS: dexamethasone 10 mg/mL INJ 8 MG IM (14:57)
[2020-12-20 15:18] VITALS: BP 142/87; PULSE 60; RESP 17; O2SAT 98
== END 2020-12-20 15:19 | disposition home or self-care (01) ==
PROVIDERS: Emergency Provider Physician Assistant; PCP Family Medicine
DX: M25.552 Pain in left hip (principal); Z79.82 Long term (current) use of aspirin; I25.10 Atherosclerotic heart disease of native coronary artery without angina pectoris; I11.0 Hypertensive heart disease with heart failure; I50.32 Chronic diastolic (congestive) heart failure; E78.5 Hyperlipidemia, unspecified; Z96.652 Presence of left artificial knee joint; Z87.891 Personal history of nicotine dependence
CPT/HCPCS: 73502; 96372; 99283; J1100

== ENCOUNTER 2021-01-03 06:00 | Outpatient (RCR) | payer MEDICARE, OTHER, SELFPAY | END 2021-02-01 23:59 | disposition home or self-care (01) | LOC: TPT 06:00 | PROVIDERS: PCP Family Medicine; Referring Provider Family Medicine; Visit Provider Family Medicine | DX: I69.90 Unspecified sequelae of unspecified cerebrovascular disease (principal); R53.1 Weakness | CPT/HCPCS: 97035; 97110 ==

== ENCOUNTER → 2021-01-11 08:04 | Outpatient (BNVA) | payer MEDICARE, OTHER, SELFPAY | PROVIDERS: PCP Family Medicine; Visit Provider Specialist | DX: G30.9 Alzheimer's disease, unspecified (principal); F02.80 Dementia in other diseases classified elsewhere, unspecified severity, without behavioral disturbance, psychotic disturbance, mood disturbance, and anxiety; Z87.891 Personal history of nicotine dependence | CPT/HCPCS: 96116; 99214 ==

== ENCOUNTER → 2021-04-25 12:41 | Outpatient (BNVA) | payer MEDICARE, OTHER, SELFPAY | PROVIDERS: PCP Family Medicine; Visit Provider Internal Medicine Cardiovascular Disease | DX: R06.02 Shortness of breath (principal); R25.2 Cramp and spasm | CPT/HCPCS: 80048; 83735 ==

== ENCOUNTER → 2021-05-02 08:57 | Outpatient (BNVA) | payer MEDICARE, OTHER, SELFPAY | PROVIDERS: PCP Family Medicine; Visit Provider Specialist | DX: G30.9 Alzheimer's disease, unspecified (principal); F02.80 Dementia in other diseases classified elsewhere, unspecified severity, without behavioral disturbance, psychotic disturbance, mood disturbance, and anxiety; Z87.891 Personal history of nicotine dependence | CPT/HCPCS: 99212; 99214 ==

== ENCOUNTER 2021-05-11 08:31 | Outpatient (CLI) | payer MEDICARE, OTHER, SELFPAY ==
--- NOTE | 2021-05-11 08:39 | CT_ITS ---
WS: [id number] CT NECK WITH CONTRAST HISTORY: ACUTE ALLERGIC RHINITIS TECHNIQUE: Contiguous 5 mm axial images are performed through the neck with intravenous contrast. Sag ittal and coronal reformats are also submitted. All CT scans at [facility] use at least one o f these dose optimization techniques: automated exposure control; mA and/or kV adjustment per patient size (includes targeted exams where dose is matched to clinical indication); or iterative reconstruc tion. CONTRAST: CONTRAST: Omnipaque 300; 95 mL IV. DLP: 788.67 mGycm COMPARISON: 09/28/2020 Nasopharynx, oropharynx, hypopharynx and larynx are unremarkable. No soft tissue masses or abnormal e nhancement. Torus tubarius and fossa of Rosenmuller and parapharyngeal fat are normal. No significant lymphadenopathy is identified. Thyroid gland and salivary glands are normally enhancing with no masses. Spondylitic changes throughout the cervical spine. T1 anterolisthesis by 5 mm. Visualized portions of the skull base demonstrate no abnormalities. Orbits and globes are within norm al limits. No soft tissue masses. Visualized paranasal sinuses and mastoid air cells are normal. Lung apices are clear. Calcification in the cervical carotid arteries. Stenoses described on 1. CT/CT neck w con* [id number] IMPRESSION: 1. No neck mass or adenopathy. 2. No sinus disease.
[2021-05-11] MEDS: iohexol 300 mg/mL 100 mL Btl IV (08:59)
== END 2021-05-11 08:32 | disposition home or self-care (01) ==
PROVIDERS: PCP Family Medicine; Visit Provider Specialist
DX: J30.89 Other allergic rhinitis (principal)
CPT/HCPCS: 70491; Q9967

== ENCOUNTER → 2021-07-13 11:43 | Outpatient (BNVA) | payer MEDICARE, OTHER, SELFPAY | PROVIDERS: PCP Family Medicine; Visit Provider Podiatrist Foot & Ankle Surgery | DX: Z01.812 Encounter for preprocedural laboratory examination (principal) | CPT/HCPCS: 80048; 85025 ==

== ENCOUNTER → 2021-07-17 08:53 | Outpatient (BNVA) | payer MEDICARE, OTHER, SELFPAY | PROVIDERS: PCP Family Medicine; Visit Provider Family Medicine | DX: Z01.812 Encounter for preprocedural laboratory examination (principal) | CPT/HCPCS: 80048 ==

== ENCOUNTER 2021-09-19 14:48 | Outpatient (CLI) | payer MEDICARE, OTHER, SELFPAY ==
--- NOTE | 2021-09-19 15:00 | USCV_ITS ---
Bhupendra Ambriz Age: 80 Gender: M : 1940 Exam Date: 09/19/2021 15:15 Ordering Phys: Mc Swift MD (Andy) ([email or web address] [place]) Technologist: BENJAMIN Exam Location: [facility] [place] Indication: bilateral carotid artery stenosis Risk Factors: Previous Vascular Surgery: Right Brachial BP: / Left Brachial BP: / Right Left Velocity (cm/s) Spectral Plaque Velocity (cm/s) Spectral Plaque Syst/Diast Broadening Syst/Diast Broadening 89.50/ 12.50 Prox CCA 92.00 / 7.60 87.80/ 14.30 Mid CCA 85.40 / 12.00 99.20/ 16.50 Distal CCA 74.90 / 16.00 56.60/ 11.30 Prox ICA 156.90/ 29.90 48.40/ 11.40 Mid ICA 96.20 / 14.50 47.70/ 12.90 Distal ICA 80.30 / 17.50 115.40 ECA 139.80 0.64 ICA/CCA 1.84 Antegrade Vertebral Antegrade 39.70/ 11.70 cm/s 54.60/ 10.50 cm/s Tri Subclavian Tri 80.70 94.20 FINDINGS Comparison:. 10/15/20 Diffuse bilateral scattered calcified plaque and intimal thickening throughout the common carotid arteries and extending through the bifurcation. Greater plaque on the left with no progression. Mild elevation of systolic velocity on the left, normal diastolic velocity. Bilateral antegrade vertebral arteries. CONCLUSIONS Left ICA stenosis 50-69%. Closer to 50%. Right ICA stenosis < 50%. No interval change in stenosis since prior exam. Dr. Rody Bran DO (Electronically Signed) Final Date: 20 September 2021 07:38 S
== END 2021-09-19 14:49 | disposition home or self-care (01) ==
LOC: RAD 14:58
PROVIDERS: PCP Family Medicine; Visit Provider Thoracic Surgery (Cardiothoracic Vascular Surgery)
DX: I65.23 Occlusion and stenosis of bilateral carotid arteries (principal)
CPT/HCPCS: 93880

== ENCOUNTER → 2021-10-24 18:01 | Outpatient (BNVA) | payer MEDICARE, OTHER, SELFPAY | PROVIDERS: PCP Family Medicine; Visit Provider Family Medicine | DX: E78.5 Hyperlipidemia, unspecified (principal); I10 Essential (primary) hypertension | CPT/HCPCS: 80053; 80061; 84443; 85025 ==

== ENCOUNTER → 2021-10-25 10:07 | Outpatient (BNVA) | payer MEDICARE, OTHER, SELFPAY | PROVIDERS: PCP Family Medicine; Visit Provider Internal Medicine Cardiovascular Disease | DX: I25.10 Atherosclerotic heart disease of native coronary artery without angina pectoris (principal); I11.0 Hypertensive heart disease with heart failure; I50.30 Unspecified diastolic (congestive) heart failure; I65.29 Occlusion and stenosis of unspecified carotid artery; G47.33 Obstructive sleep apnea (adult) (pediatric); E78.5 Hyperlipidemia, unspecified; Z87.891 Personal history of nicotine dependence; Z79.82 Long term (current) use of aspirin | CPT/HCPCS: 99214 ==

== ENCOUNTER 2021-11-27 07:30 | Emergency (ER) | payer MEDICARE, OTHER, SELFPAY ==
[2021-11-27 07:48] VITALS: BP 162/85; PULSE 51; RESP 14; O2SAT 97; BMI 29.0
--- NOTE | 2021-11-27 07:50 | XR_ITS ---
WS: [id number] NASAL BONES TECHNIQUE: Lateral and Connor' view have been performed. HISTORY: Fall COMPARISON: None available. Nondisplaced fracture through the mid to distal nasal bones. There is very slight RIGHT curvature of the nasal septum. No air-fluid levels are noted within the sinus cavities. XR/XR nasal bones min 3V [id number] IMPRESSION: Nondisplaced mid to distal nasal bone fracture.
--- NOTE | 2021-11-27 07:51 | CT_ITS ---
WS: [id number] CT CERVICAL SPINE HISTORY: trauma TECHNIQUE: Contiguous 2.5 mm axial imaging performed through the entire cervical spine. Sagittal and coronal reformats also performed. All CT scans at [facility] use at least one of these dose o ptimization techniques: automated exposure control; mA and/or kV adjustment per patient size (include s targeted exams where dose is matched to clinical indication); or iterative reconstruction. DLP: 690.35 mGy.cm COMPARISON: 05/11/2021 Straightening of the normal cervical lordosis. No cervical fracture identified. T1 anterolisthesis by 3 mm. Facet joints are narrowed throughout the cervical spine. Moderate degenerative disc space narr owing and osteophytosis involving the vertebral bodies. Craniocervical junction is normally aligned. The lateral masses of C1 and C2 are aligned. Odontoid is intact. C2-C3: Mild facet joint arthritis and osteophytosis vertebral body. Small RIGHT foraminal narrowing. C3-C4: Osteophytic ridging and facet arthritis. Mild foraminal narrowing. C4-C5: Advanced facet joint arthritis with osteophytosis from the vertebral body causing moderate LEF T and mild RIGHT foraminal stenosis. C5-C6: Osteophytic ridging and facet arthritis. Moderate bilateral foraminal stenosis. C6-C7: Mild/moderate bilateral foraminal stenosis and facet arthritis. C7-T1: Mild bilateral foraminal stenosis and facet arthritis. Soft tissues are normal. Lung apices are clear. CT/CT cervical spin wo con* [id number] IMPRESSION: 1. No acute cervical spine fracture. 2. Moderate degenerative facet joint arthritis and disc disease throughout the cervical spine. Bilateral foraminal stenosis as described above. 3. T1 anterolisthesis by 3 mm. Unchanged since 05/11/2021.
--- NOTE | 2021-11-27 07:51 | CT_ITS ---
WS: [id number] CT FACIAL BONES HISTORY: trauma TECHNIQUE: Images obtained from the supraorbital location through the mandible. Soft tissue and bone windows are reviewed. Coronal and sagittal reformats have also been submitted. DLP: 714.[address] scans at [facility] use at least one of these dose optimization techniques: automated e xposure control; mA and/or kV adjustment per patient size (includes targeted exams where dose is matc hed to clinical indication); or iterative reconstruction. COMPARISON: 06/03/[address] Nondisplaced distal nasal bone fracture is identified. This fracture probably only involves the RIGHT nasal bone. Very slight leftward deviation of the nasal bones similar to prior study from 2006. The zygomatic arches are intact. No air-fluid levels within the sinuses. Orbits and globes are normal. There is a small amount of soft tissue hematoma and induration centered over the RIGHT frontal bone. Upper cervical spine is negative for acute fracture. Moderate calcification noted within the intracranial carotid arteries. CT/CT facial bones wo con* [id number] IMPRESSION: 1. Nondisplaced RIGHT nasal bone fracture. 2. Mild soft tissue induration and injury centered over the RIGHT frontal bone . 3. Otherwise negative for acute injury.
--- NOTE | 2021-11-27 07:51 | CT_ITS ---
WS: [id number] CT HEAD NONCONTRAST HISTORY: trauma TECHNIQUE: Contiguous axial imaging performed through the brain in 2.5 mm imaging. Bone and soft tiss ue windows. Sagittal and coronal reformats reviewed. All CT scans at [facility] use at least one of these dose optimization techniques: automated exposure control; mA and/or kV adjustment per pa tient size (includes targeted exams where dose is matched to clinical indication); or iterative recon struction. DLP: 801.65 mGy.cm COMPARISON: 10/15/2020 No acute intracranial hemorrhage, midline shift or mass effect. Mild bilateral symmetric atrophy. There are a few areas of decreased attenuation in the periventricul ar white matter from chronic ischemic disease. Small lacunar infarcts in the anterior limbs of the in ternal capsules. Ventricles: Normal size with no hydrocephalus. No inferior displacement of the cerebellar tonsils. Clivus and pituitary region are negative. Paranasal sinuses: As visualized are clear. Mastoid air cells: Coalescence of mastoid air cells on the RIGHT. Suspect prior surgery. No interval change. Calvarium and scalp: Skull is intact with no soft tissue edema or swelling. CT/CT head wo con* [id number] IMPRESSION: 1. No acute intracranial hemorrhage or edema. 2. Mild atrophy and small vessel ischemic disease. Similar to the prior examin ation.
[2021-11-27 09:17] VITALS: BP 145/87; PULSE 50; RESP 16; O2SAT 97
--- NOTE | 2021-11-27 09:31 | DCPLANNER ---
Addendum entered by Krysta Bergeron 11/28/21 17:37: program manager environmental planning was notified by ENT clinic, was informed that patient declined patient at this time. Original Note: program manager environmental planning was asked to schedule a follow up appointment for patient with ENT. program manager environmental planning sent patients information to the front office staff at ENT. Patients information will be printed and reviewed. Clinic will call patient with appointment information.
[2021-11-27 09:35] LABS: Basophils # 0.1 10^3/uL (0.0-0.1); Basophils % 0.6 %; Eosinophils # 0.2 10^3/uL (0.0-0.8); Hematocrit 45.6 % (42.0-52.0); Lymphocytes # 1.8 10^3/uL (0.8-4.8); Lymphocytes % 23.2 %; Mean Corpuscular HGB Conc 32.9 g/dL (30.0-36.0); Mean Corpuscular Hemoglobin 30.2 pg (28.0-34.0); Mean Corpuscular Volume 91.9 fl (80-94); Mean Platelet Volume 9.9 fL (7.4-10.4); Monocytes % 12.5 %; Neutrophils # 4.64 10^3/uL (1.8-7.7); Neutrophils % 60.3 %; Nucleated Red Blood Cells % 0 %; Platelet Count 197 10^3/cmm (130-400); Red Blood Count 4.96 10^6/uL (4.1-5.3); Red Cell Distribution Width 13.1 % (12.1-15.1); White Blood Count 7.7 10^3/uL (4.0-10.0)
--- NOTE | 2021-11-27 09:35 | W.ED.FALL ---
HPI - Fall General: Chief Complaint: Epistaxis Stated Complaint: fell and busted nose cant get to stop bleeding Time Seen by Provider: 11/27/21 07:47 Source: patient Mode of arrival: ambulatory Limitations: no limitations History of Present Illness: 80-year-old male who fell 4 days ago while turkey hunting was trying to get down behind a log evidently slipped and hit his face on the log there is no loss consciousness did have some bruising on the nose and developed some ecchymosis around his left eye. He has not had any nausea or vomiting he has had intermittent epistaxis since then his nose is still quite tender and swollen. No other reported injuries. He is not on any anticoagulation but does take aspirin daily. MD complaint: fall Onset (ago): day(s) (4) Fall from: standing Fall witnessed: no Place fall occurred: other (Outdoors) Loss of consciousness: None Prolonged down time: no Symptoms prior to fall: none Context: tripped/slipped Location of injury: head and face Quality: dull and throbbing Associated symptoms-after fall: Reports other (Intermittent epistaxis); Denies abdominal pain, chest pain, confusion, difficulty walking, headache(s), hematuria, lightheadedness, neck pain, numbness, short of breath, vertigo or weakness Review of Systems Const: Denies: fever(s), chills, body aches, change in appetite, fatigue or malaise ENMT: Reports: epistaxis; Denies: throat pain, ear or mastoid pain, nasal discharge or nasal congestion Card: Denies: chest pain or lightheadedness Resp: Denies: dyspnea, productive cough or non-productive cough GI: Denies: abdominal pain, nausea or vomiting : Denies: hematuria Musc: Denies: neck pain Skin/Breast: Denies: rash or pruritus Neuro: Denies: headache(s), difficulty walking, vertigo or confusion PFSH ED PFSH: Medical History 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) Atherosclerosis of coronary artery of [place] heart Bradycardia Carpal tunnel syndrome of left wrist Chronic diastolic (congestive) heart failure Depressed Dyslipidemia Essential (primary) hypertension Gastro-esophageal reflux disease without esophagitis History of colon polyps History of tick-borne disease positive serology for Erlichiosis Lacunar stroke Lumbar spondylosis Moderate obstructive sleep apnea C-pap 11-15 Neuropathy Plantar fasciitis Primary osteoarthritis, unspecified site Surgical History H/O esophagogastroduodenoscopy with dilation of esophageal stricture History of bilateral cataract extraction (~2012) History of colonoscopy with polypectomy History of total left knee replacement (~2011) Hx of angioplasty stents x , 2008; 2017 Hx of laminectomy lumbar L1-2-3-4-5 Hx of shoulder surgery (~2011) rotator cuff and tendon repairs x several per pt Family History Mother Diabetes Dementia Father CAD (coronary artery disease) Brother CAD (coronary artery disease) Sister CAD (coronary artery disease) Denies family history of Clotting disorder Chronic kidney disease (CKD) Suicide Anesthesia complication Bleeding disorder Lung disease Cancer Stroke Social History Smoking and tobacco status: former smoker Quit status (tobacco): has quit using tobacco Year quit tobacco: 40 Alcohol intake: never Lives independently: Yes Household members: spouse Housing: House Marital status: Current occupational status: retired History of recent travel: No Current gender identity: Male Michelle/Sikhism: [employer] Physical Exam Const: COMMON NORMALS: no acute distress GENERAL APPEARANCE: cooperative and comfortable ORIENTATION/CONSCIOUSNESS: Yes awake, Yes oriented to person, Yes oriented to place and Yes oriented to time HENMT: COMMON NORMALS: normocephalic, hearing grossly normal bilaterally, external ears normal, EAC's normal, TM's normal bilaterally, Normal nasal mucous membranes and turbinates present, moist oral mucous membranes and oropharynx normal HEAD & SCALP: normocephalic NOSE: Normal nasal mucous membranes and turbinates present and Other nasal findings present (Bruising and slight abrasion over the bridge of the nose ecchymosis extendi); no Epistaxis present EXTERNAL EAR: Yes external ears normal EXTERNAL AUDITORY CANAL: EAC's normal TYMPANIC MEMBRANE: TM's normal bilaterally OTHER: Ecchymosis extending to the left lower eyelid. Deformity of the nasal bone consistent with fracture. Eye: COMMON NORMALS: Equal, round and reactive pupils present, EOMs intact bilaterally, conjunctivae normal and no scleral icterus CONJUNCTIVA: Yes conjunctivae normal PUPIL: Yes Equal, round and reactive pupils present Neck/C-Spine: COMMON NORMALS: full ROM, no lymphadenopathy, supple and no JVD Lymph: LYMPHATIC: no lymphadenopathy noted and no lymphedema noted Resp: COMMON NORMALS: normal respiratory effort, No retractions, No use of accessory muscles and clear to auscultation bilaterally AUSCULTATION: clear to auscultation bilaterally Cardio: COMMON NORMALS: no JVD, regular rate, regular rhythm and No murmurs present (Cardio) RATE: regular rate RHYTHM: regular rhythm GI: COMMON NORMALS: Soft to palpation and No hepatosplenomegaly present AUSCULTATION: Yes normoactive bowel sounds PALPATION: Yes Soft to palpation, No Tenderness to palpation present (GI), No Guarding due to palpation present (GI) and Yes No hepatosplenomegaly present Extremity: COMMON NORMALS: normal to inspection, capillary refill normal, no clubbing, cyanosis or edema, no calf tenderness and no pedal edema Neuro: SENSORIUM/ORIENTATION: Yes oriented to person, Yes oriented to place and Yes oriented to time Skin: COMMON NORMALS: no rashes or lesions noted GENERAL SKIN EXAM: no rashes or lesions noted Course Vital Signs: Vital signs: Vital Signs Pulse Rate 50 L 11/27/21 09:17 Respiratory Rate 16 11/27/21 09:17 Blood Pressure 145/87 11/27/21 09:17 Pulse Oximetry 97 11/27/21 09:17 MDM - Fall Medical Decision Making Imaging reviewed labs reviewed. Will refer patient to ENT not actively bleeding now no intervention undertaken Medical Records I reviewed the patient's medical records. Lab Data I reviewed the patient's lab results. : 11/27/21 09:26 11/27/21 09:26 Radiology Impressions Nasal Bones X-Ray 11/27/21 07:50 IMPRESSION: Nondisplaced mid to distal nasal bone fracture. Cervical Spine CT 11/27/21 07:51 IMPRESSION: 1. No acute cervical spine fracture. 2. Moderate degenerative facet joint arthritis and disc disease throughout the cervical spine. Bilateral foraminal stenosis as described above. 3. T1 anterolisthesis by 3 mm. Unchanged since 05/11/2021. Face CT 11/27/21 07:51 IMPRESSION: 1. Nondisplaced RIGHT nasal bone fracture. 2. Mild soft tissue induration and injury centered over the RIGHT frontal bone. 3. Otherwise negative for acute injury. Head CT 11/27/21 07:51 IMPRESSION: 1. No acute intracranial hemorrhage or edema. 2. Mild atrophy and small vessel ischemic disease. Similar to the prior examination. Laboratory Results WBC 7.7 10^3/uL (4.0-10.0) 11/27/21 09: RBC 4.96 10^6/uL (4.1-5.3) 11/27/21 09: Hgb 15.0 g/dL (11.7-16.6) 11/27/21 09: Hct 45.6 % (42.0-52.0) 11/27/21: MCV 91.9 fl (80-94) 11/27/21: MCH 30.2 pg (28.0-34.0) 11/27/21: MCHC 32.9 g/dL (30.0-36.0) 11/27/21: RDW 13.1 % (12.1-15.1) 11/27/21 09: Plt Count 197 10^3/cmm (130-400) 11/27/21 09: MPV 9.9 fL (7.4-10.4) 11/27/21: Neut % (Auto) 60.3 % 11/27/21 09: Lymph % (Auto) 23.2 % 11/27/21: [place] % (Auto) 12.5 % 11/27/21: Eos % (Auto) 3.0 % 11/27/21: Baso % (Auto) 0.6 % 11/27/21: Neut # (Auto) 4.64 10^3/uL (1.8-7.7) 11/27/21 09: Lymph # (Auto) 1.8 10^3/uL (0.8-4.8) 11/27/21: [place] # (Auto) 1.0 10^3/uL (0.2-0.9) H 11/27/21 09: Eos # (Auto) 0.2 10^3/uL (0.0-0.8) 11/27/21:26 Baso # (Auto) 0.1 10^3/uL (0.0-0.1) 11/27/21 09:26 Nucleated RBC % (auto) 0 % 11/27/21 09:26 Nucleated RBCs # 0.0 /100WBC 11/27/21 09:26 Discharge Plan Discharge Patient Disposition: Home Clinical Impression: Closed fracture nasal bone, Fall, Mild epistaxis Condition: Stable Prescriptions: No Action zinc 50 mg tablet 50 mg PO DAILY 0RF aspirin 325 mg tablet 325 mg PO DAILY 0RF potassium gluconate 595 mg (99 mg) tablet 595 mg PO DAILY 0RF fluticasone propionate [Flonase Allergy Relief] 50 mcg/actuation spray,suspension 1 spray INTRANASAL Q12H Qty: 18.2 2RF Rx Instructions: administer into each nostril diclofenac sodium [Voltaren Arthritis Pain] 1 % gel 2 g topical QID Qty: 100 3RF Rx Instructions: apply to single elbow, wrist or hand; for hand includes palm/fingers/back of hand pravastatin 80 mg tablet 80 mg PO DAILY Qty: 90 3RF venlafaxine 150 mg capsule,extended release 24hr See Rx Instructions .ROUTE .COMPLEX Qty: 90 3RF Dose Instruction: TAKE 1 CAPSULE EVERY EVENING AT 2000 Rx Instructions: TAKE 1 CAPSULE EVERY EVENING AT 2000 ramipril 10 mg capsule 10 mg PO DAILY@07 Qty: 90 3RF carvedilol 6.25 mg tablet 6.25 mg PO Q12H Qty: 180 3RF Rx Instructions: must administer with a meal/food sildenafil [Viagra] 50 mg tablet 50 mg PO DAILY PRN (Reason: sexual activity) Qty: 20 0RF Rx Instructions: administer 30 minutes to 4 hours before activity amlodipine 2.5 mg tablet 2.5 mg PO DAILY Qty: 90 3RF Rx Instructions: Unable to tolerate 5mg dose galantamine 24 mg capsule,ext rel. pellets 24 hr 24 mg PO QAM Qty: 90 1RF Rx Instructions: administer with breakfast ibuprofen 600 mg tablet 600 mg PO Q8H PRN (Reason: pain) Qty: 20 0RF Discharge Orders: Discharge ED (Routine); Ordered 11/27/21 Ordered By: Beltran Coffey Referrals: Lisa Hyde MD [Primary Care Provider] - Discharge Diet: Usual diet Discharge Activity: Increase activity as tolerated Patient Instructions: Opioid Safety Activity Restrictions/Additional Instructions: Avoid forceful blowing of the nose. Apply Vaseline with a Q-tip twice daily to the inside of the nares. Case management make arrangements for you to follow-up with ENT. Coding Level of Care Code ED Air Analyst for Kapil Bearden
[2021-11-27 09:49] LABS: Alanine Aminotransferase 18 U/L (0-41); Albumin Level 3.8 g/dL (3.5-5.2); Alkaline Phosphatase 64 IU/L (40-130); Anion Gap 13.3 (5-19); Aspartate Amino Transferase 22 U/L (0-40); Blood Urea Nitrogen 20 mg/dL (8-23); Calcium 8.1 mg/dL (8.5-10.5); Carbon Dioxide 23 mmol/L (22-29); Chloride 104 mmol/L (98-107); Globulin 2.4 g/dL (1.3-4.6); Glucose 95 mg/dL (65-115); Osmolality Calculated 284 mOsm/kg (285-295); Potassium 4.3 mmol/L (3.5-5.1); Sodium 136 mmol/L (136-145); Total Bilirubin 0.3 mg/dL (0.15-1.2); Total Protein 6.2 g/dL (6.6-8.7)
== END 2021-11-27 09:45 | disposition home or self-care (01) ==
PROVIDERS: Emergency Provider Family Medicine; PCP Family Medicine
DX: S02.2XXA Fracture of nasal bones, initial encounter for closed fracture (principal); W01.198A Fall on same level from slipping, tripping and stumbling with subsequent striking against other object, initial encounter; Z87.891 Personal history of nicotine dependence; Z79.82 Long term (current) use of aspirin
CPT/HCPCS: 70160; 70450; 70486; 72125; 80053; 85025; 99283

== ENCOUNTER 2021-11-29 11:33 | Emergency (ER) | payer MEDICARE, OTHER, SELFPAY ==
[2021-11-29 12:06] VITALS: BP 127/85; PULSE 56; RESP 18; TEMP 36.3; O2SAT 97; BMI 29.0
--- NOTE | 2021-11-29 12:24 | W.ED.EPISTAX ---
HPI - Epistaxis General: Chief complaint: Epistaxis Stated complaint: possible broken nose Time Seen by Provider: 11/29/21 11:46 Source: patient Mode of arrival: ambulatory Limitations: no limitations History of Present Illness: 72-year-old male presents emergency room with intermittent epistaxis for the last several days. He was seen 2 days ago he had fallen 4 days prior to that he had a nasal bone fracture and was having intermittent epistaxis at the time I seen him he is not have any active bleeding so we did not intervene at all. He is not on any direct anticoagulants or platelet inhibitors he was taking aspirin daily but he has stopped that. Is not really reinjured the nose. He was referred to ENT but has not yet seen them. MD complaint: epistaxis Location: right nostril Onset (ago): day(s) Duration: intermittent Context: aspirin use Associated symptoms: Reports sinus pain; Deny fever(s), headache(s), syncope, vomiting or weakness Treatment prior to arrival: nose pinching Review of Systems Const: Denies: fever(s) or chills ENMT: Reports: sinus pain Card: Denies: syncope Resp: Denies: dyspnea, productive cough or non-productive cough GI: Denies: abdominal pain, nausea or vomiting : Denies: flank pain, dysuria, urinary frequency or urinary urgency Skin/Breast: Denies: rash or pruritus Neuro: Denies: headache(s) PFSH ED PFSH: Medical History 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) Atherosclerosis of coronary artery of [place] heart Bradycardia Carpal tunnel syndrome of left wrist Chronic diastolic (congestive) heart failure Depressed Dyslipidemia Essential (primary) hypertension Gastro-esophageal reflux disease without esophagitis History of colon polyps History of tick-borne disease positive serology for Erlichiosis Lacunar stroke Lumbar spondylosis Moderate obstructive sleep apnea C-pap 11-15 Neuropathy Plantar fasciitis Primary osteoarthritis, unspecified site Surgical History H/O esophagogastroduodenoscopy with dilation of esophageal stricture History of bilateral cataract extraction (~2012) History of colonoscopy with polypectomy History of total left knee replacement (~2011) Hx of angioplasty stents x 3, 2008; 2017 Hx of laminectomy lumbar L1-2-3-4-5 Hx of shoulder surgery (~2011) rotator cuff and tendon repairs x several per pt Family History Mother Diabetes Dementia Father CAD (coronary artery disease) Brother CAD (coronary artery disease) Sister CAD (coronary artery disease) Denies family history of Clotting disorder Chronic kidney disease (CKD) Suicide Anesthesia complication Bleeding disorder Lung disease Cancer Stroke Social History Smoking and tobacco status: former smoker Quit status (tobacco): has quit using tobacco Year quit tobacco: 40 Alcohol intake: never Lives independently: Yes Household members: spouse Housing: House Marital status: Current occupational status: retired History of recent travel: No Current gender identity: Male Michelle/Uatsdin: [employer] Physical Exam Const: COMMON NORMALS: no acute distress GENERAL APPEARANCE: cooperative and comfortable ORIENTATION/CONSCIOUSNESS: Yes awake, Yes oriented to person, Yes oriented to place and Yes oriented to time HENMT: COMMON NORMALS: atraumatic and hearing grossly normal bilaterally HEAD & SCALP: atraumatic OTHER: Patient has a clamp on the nares 1 removed there is no active bleeding I can see some bleeding just adjacent to the Jackie there is no bleeding in the anterior nasal plexus. Neck/C-Spine: COMMON NORMALS: no JVD Resp: COMMON NORMALS: normal respiratory effort, No retractions, No use of accessory muscles and clear to auscultation bilaterally AUSCULTATION: clear to auscultation bilaterally Cardio: COMMON NORMALS: no JVD, regular rate, regular rhythm and No murmurs present (Cardio) RATE: regular rate RHYTHM: regular rhythm GI: COMMON NORMALS: Soft to palpation and No hepatosplenomegaly present AUSCULTATION: Yes normoactive bowel sounds PALPATION: Yes Soft to palpation, No Tenderness to palpation present (GI), No Guarding due to palpation present (GI) and Yes No hepatosplenomegaly present Extremity: COMMON NORMALS: normal to inspection, capillary refill normal, no clubbing, cyanosis or edema, no calf tenderness and no pedal edema Neuro: SENSORIUM/ORIENTATION: Yes oriented to person, Yes oriented to place and Yes oriented to time Skin: COMMON NORMALS: no rashes or lesions noted GENERAL SKIN EXAM: no rashes or lesions noted Course Vital Signs: Vital signs: Vital Signs Temperature 97.3 F L 11/29/21 12:06 Pulse Rate 53 L 11/29/21 13:34 Respiratory Rate 18 11/29/21 12:06 Blood Pressure 142/77 11/29/21 13:34 Pulse Oximetry 97 11/29/21 13:34 MDM - Epistaxis Medical Decision Making Patient is not actively bleeding at this time I did apply oxymetazoline bilaterally to the nares. He was not bleeding actively only seen him previously and I avoided applying a nasal tampon etc. to be extremely uncomfortable for the patient. He is reporting that intermittent bleeding since then initially we considered applying a nasal tampon fortunately we able to get Dr. Driscoll to see the patient. Patient was discharged from the emergency room to Dr. Betts's office where he will evaluate. I am concerned that applying the nasal tampon be exquisitely painful for the patient with a nasal fracture and then he would have to have it in place for some time which also very uncomfortable hopefully with Dr. you consultation they can provide more definitive care will be less cumbersome to the patient. Discussed this with the patient they will proceed directly to Dr. Betts's office. Medical Records I reviewed the patient's medical records. Lab Data I reviewed the patient's lab results. : 11/29/21 12:52 Laboratory Results WBC 8.2 10^3/uL (4.0-10.0) 11/29/21 12:52 RBC 5.01 10^6/uL (4.1-5.3) 11/29/21 12:52 Hgb 14.9 g/dL (11.7-16.6) 11/29/21 12:52 Hct 45.7 % (42.0-52.0) 11/29/21 12:52 MCV 91.2 fl (80-94) 11/29/21 12:52 MCH 29.7 pg (28.0-34.0) 11/29/21 12:52 MCHC 32.6 g/dL (30.0-36.0) 11/29/21 12:52 RDW 12.9 % (12.1-15.1) 11/29/21 12:52 Plt Count 205 10^3/cmm (130-400) 11/29/21 12:52 MPV 9.7 fL (7.4-10.4) 11/29/21 12:52 Neut % (Auto) 59.4 % 11/29/21 12:52 Lymph % (Auto) 23.1 % 11/29/21 12:52 [place] % (Auto) 12.9 % 11/29/21 12:52 Eos % (Auto) 3.6 % 11/29/21 12:52 Baso % (Auto) 0.6 % 11/29/21 12:52 Neut # (Auto) 4.90 10^3/uL (1.8-7.7) 11/29/21 12:52 Lymph # (Auto) 1.9 10^3/uL (0.8-4.8) 11/29/21 12:52 [place] # (Auto) 1.1 10^3/uL (0.2-0.9) H 11/29/21 12:52 Eos # (Auto) 0.3 10^3/uL (0.0-0.8) 11/29/21 12:52 Baso # (Auto) 0.1 10^3/uL (0.0-0.1) 11/29/21 12:52 Nucleated RBC % (auto) 0 % 11/29/21 12:52 Nucleated RBCs # 0.0 /100WBC 11/29/21 12:52 Discharge Plan Discharge Patient Disposition: Home Clinical Impression: Epistaxis, Closed fracture nasal bone Condition: Stable Prescriptions: No Action zinc 50 mg tablet 50 mg PO DAILY PRN (Reason: unknown) 0RF aspirin 325 mg tablet 325 mg PO DAILY 0RF potassium gluconate 595 mg (99 mg) tablet 595 mg PO DAILY 0RF pravastatin 80 mg tablet 80 mg PO DAILY Qty: 90 3RF ramipril 10 mg capsule 10 mg PO DAILY@07 Qty: 90 3RF sildenafil [Viagra] 50 mg tablet 50 mg PO DAILY PRN (Reason: sexual activity) Qty: 20 0RF Rx Instructions: administer 30 minutes to 4 hours before activity amlodipine 2.5 mg tablet 2.5 mg PO DAILY Qty: 90 3RF Rx Instructions: Unable to tolerate 5mg dose galantamine 24 mg capsule,ext rel. pellets 24 hr 24 mg PO QAM Qty: 90 1RF Rx Instructions: administer with breakfast ibuprofen 600 mg tablet 600 mg PO Q8H PRN (Reason: pain) Qty: 20 0RF cyclobenzaprine 10 mg tablet 10 mg PO BEDTIME PRN (Reason: Muscle Spasm) 0RF isosorbide mononitrate 60 mg tablet extended release 24 hr 60 mg PO DAILY 0RF magnesium oxide 400 mg magnesium Tablet 400 mg PO DAILY 0RF carvedilol 6.25 mg tablet 12.5 mg PO DAILY 0RF Rx Instructions: must administer with a meal/food venlafaxine 150 mg capsule,extended release 24hr 150 mg PO BEDTIME@20 0RF Flonase Allergy Relief 50 mcg/actuation spray,suspension 2 spray INTRANASAL DAILY PRN (Reason: Allergy Symptoms) 0RF Rx Instructions: administer into each nostril Voltaren Arthritis Pain 1 % gel 2 g topical QID PRN (Reason: Pain) 0RF Rx Instructions: apply to single elbow, wrist or hand; for hand includes palm/fingers/back of hand Discharge Orders: Discharge ED (Routine); Ordered 11/29/21 Ordered By: Beltran Coffey Referrals: Dannie An MD [Physician] - Lisa Hyde MD [Primary Care Provider] - Discharge Diet: Usual diet Discharge Activity: Resume usual activity Patient Instructions: Opioid Safety Activity Restrictions/Additional Instructions: After being discharged here proceed directly to Dr. Betts's office he will evaluate and provide definitive treatment. Coding Level of Care Code ED Logging Crew Foreman for Kapil Fwd Exam Comprehensive
--- NOTE | 2021-11-29 12:54 | PC.PHAR ---
pt states he takes care of his own medications-pt states he took meds today but is unsure what ones he took- pt states he has been taking imdur er 60mg daily rx filled 09/27/21 90d/s-on 10/27/21 benitoclementine hearn when you look at the audit history-notes are made in the pharmacy comments
[2021-11-29 13:01] LABS: Basophils # 0.1 10^3/uL (0.0-0.1); Basophils % 0.6 %; Eosinophils # 0.3 10^3/uL (0.0-0.8); Eosinophils % 3.6 %; Hematocrit 45.7 % (42.0-52.0); Hemoglobin 14.9 g/dL (11.7-16.6); Lymphocytes # 1.9 10^3/uL (0.8-4.8); Lymphocytes % 23.1 %; Mean Corpuscular HGB Conc 32.6 g/dL (30.0-36.0); Mean Corpuscular Hemoglobin 29.7 pg (28.0-34.0); Mean Corpuscular Volume 91.2 fl (80-94); Mean Platelet Volume 9.7 fL (7.4-10.4); Monocytes # 1.1 10^3/uL (0.2-0.9); Monocytes % 12.9 %; Neutrophils % 59.4 %; Nucleated Red Blood Cells % 0 %; Platelet Count 205 10^3/cmm (130-400); Red Blood Count 5.01 10^6/uL (4.1-5.3); Red Cell Distribution Width 12.9 % (12.1-15.1); White Blood Count 8.2 10^3/uL (4.0-10.0)
[2021-11-29 13:34] VITALS: BP 142/77; PULSE 53; O2SAT 97
== END 2021-11-29 13:43 | disposition home or self-care (01) ==
PROVIDERS: Emergency Provider Family Medicine; PCP Family Medicine
DX: R04.0 Epistaxis (principal); Z87.891 Personal history of nicotine dependence; S02.2XXD Fracture of nasal bones, subsequent encounter for fracture with routine healing; W19.XXXD Unspecified fall, subsequent encounter
CPT/HCPCS: 85025; 99283

== ENCOUNTER → 2022-02-15 12:11 | Outpatient (BNVA) | payer MEDICARE, OTHER, SELFPAY | PROVIDERS: PCP Family Medicine; Visit Provider Nurse Practitioner Family | DX: R53.83 Other fatigue (principal); G47.00 Insomnia, unspecified; W57.XXXA Bitten or stung by nonvenomous insect and other nonvenomous arthropods, initial encounter; Z86.19 Personal history of other infectious and parasitic diseases | CPT/HCPCS: 80053; 86618; 86666; 86757 ==

== ENCOUNTER → 2022-04-25 10:12 | Outpatient (BNVA) | payer MEDICARE, OTHER, SELFPAY | PROVIDERS: PCP Family Medicine; Visit Provider Nurse Practitioner Family | DX: R53.83 Other fatigue (principal); I11.0 Hypertensive heart disease with heart failure; I50.32 Chronic diastolic (congestive) heart failure; Z87.891 Personal history of nicotine dependence | CPT/HCPCS: 99213; 99214 ==

== ENCOUNTER → 2022-08-14 09:29 | Outpatient (BNVA) | payer MEDICARE, OTHER, SELFPAY | PROVIDERS: PCP Family Medicine; Visit Provider Nurse Practitioner Family | DX: M19.031 Primary osteoarthritis, right wrist (principal); M25.531 Pain in right wrist | CPT/HCPCS: 73110 ==

== ENCOUNTER 2022-11-19 14:23 | Outpatient (CLI) | payer MEDICARE, OTHER, SELFPAY ==
--- NOTE | 2022-11-19 14:45 | USCV_ITS ---
Bhupendra Ambriz Age: 81 Gender: M : 1940 Exam Date: 11/19/2022 14:41 Ordering Phys: Winsome Land MD ([email or web address]) Technologist: AMANDEEP Exam Location: [facility] [place] Indication: Stenosis Risk Factors: Previous Vascular Surgery: Right Brachial BP: / Left Brachial BP: / Right Left Velocity (cm/s) Spectral Plaque Velocity (cm/s) Spectral Plaque Syst/Diast Broadening Syst/Diast Broadening 161.50/16.40 Prox CCA 91.40 / 13.70 62.40/ 17.90 Mid CCA 85.40 / 18.80 72.60/ 17.10 Distal CCA 89.70 / 20.50 113.60/23.20 Prox ICA 82.40 / 25.50 69.60/ 17.00 Mid ICA 54.60 / 19.70 43.40/ 18.40 Distal ICA 49.80 / 19.20 117.45 ECA 124.60 0.70 ICA/CCA 0.90 Antegrade Vertebral Antegrade 45.40/ 14.50 cm/s 42.70/ 9.90 cm/s Tri Subclavian Tri 125.7 188.0 0 0 FINDINGS Comparison:. /. No significant elevation of systolic or diastolic velocities. Mixture of calcified and noncalcified plaque in the bifurcations. Left ICA velocity is not as high as on the prior exam. Antegrade vertebral arteries. CONCLUSIONS Bilateral ICA stenosis less than 50%. Left ICA stenosis not as elevated as on the prior exam. Dr. Rody Bran DO (Electronically Signed) Final Date: 19 November 2022 15:46 S
== END 2022-11-19 14:24 | disposition home or self-care (01) ==
LOC: RAD 14:28
PROVIDERS: PCP Family Medicine; Visit Provider Internal Medicine Cardiovascular Disease
DX: I77.9 Disorder of arteries and arterioles, unspecified (principal); I65.23 Occlusion and stenosis of bilateral carotid arteries
CPT/HCPCS: 93880; 99214

== ENCOUNTER → 2023-04-15 12:57 | Outpatient (BNVA) | payer MEDICARE, OTHER, SELFPAY | PROVIDERS: PCP Family Medicine; Visit Provider Specialist | DX: G30.9 Alzheimer's disease, unspecified (principal); F02.80 Dementia in other diseases classified elsewhere, unspecified severity, without behavioral disturbance, psychotic disturbance, mood disturbance, and anxiety; R29.90 Unspecified symptoms and signs involving the nervous system | CPT/HCPCS: 0346U; 36415; 82542; 96116; 99215 ==

== ENCOUNTER 2023-05-08 07:57 | Outpatient (CLI) | payer MEDICARE, OTHER, SELFPAY ==
--- NOTE | 2023-05-08 08:45 | MR_ITS ---
WS: [id number] MRI BRAIN WITHOUT CONTRAST HISTORY: G30.9 - Alzheimer's disease, unspecified COMPARISON: 01/16/2019 TECHNIQUE: Diffusion imaging, multiplanar T1, T2 and FLAIR imaging obtained. No evidence for acute infarct or hemorrhage. Pfeiffer-white matter differentiation is normal. Reidentified is mild small vessel changes with moderate parenchymal volume loss. Small vessel ischemi c disease in the periventricular white matter has mildly progressed. Small lacunar infarcts in the LE FT periventricular white matter are unchanged. Reidentified is mild small vessel ischemic disease in the lily. Mild atrophy of the hippocampal formations. There is increased CSF surrounding the hippocam pal formations. Ventricles and extra-axial spaces are normal. No inferior displacement of cerebellar tonsils. The sella turcica and pituitary gland are unremarkabl e. Dural venous sinuses and [place] demonstrate no abnormality on this unenhanced studies. Paranasal sinuses: Clear. Mastoid air cells: Normal. Calvarium and scalp: Intact. IMPRESSION: 1. No acute infarct or diffusion abnormality. 2. Mild progression of small vessel ischemic disease in a periventricular distribution since the jay or examination of 01/16/2019. 3. No interval infarct. 4. Mild bilateral hippocampal formation and atrophy. Atrophy does appear to have progressed since e prior study.
== END 2023-05-08 07:58 | disposition home or self-care (01) ==
LOC: RAD 08:02
PROVIDERS: PCP Family Medicine; Visit Provider Specialist
DX: G30.9 Alzheimer's disease, unspecified (principal); F02.80 Dementia in other diseases classified elsewhere, unspecified severity, without behavioral disturbance, psychotic disturbance, mood disturbance, and anxiety; I67.89 Other cerebrovascular disease; G31.89 Other specified degenerative diseases of nervous system; I11.0 Hypertensive heart disease with heart failure; I50.32 Chronic diastolic (congestive) heart failure; I25.10 Atherosclerotic heart disease of native coronary artery without angina pectoris; I65.23 Occlusion and stenosis of bilateral carotid arteries; E78.5 Hyperlipidemia, unspecified; Z87.891 Personal history of nicotine dependence
CPT/HCPCS: 70551; 99214

== ENCOUNTER → 2023-05-22 17:28 | Outpatient (BNVA) | payer MEDICARE, OTHER, SELFPAY | PROVIDERS: PCP Family Medicine; Visit Provider Family Medicine | DX: M16.11 Unilateral primary osteoarthritis, right hip (principal); M25.551 Pain in right hip; M53.3 Sacrococcygeal disorders, not elsewhere classified; G47.00 Insomnia, unspecified | CPT/HCPCS: 73502 ==

== ENCOUNTER → 2023-08-07 10:07 | Outpatient (BNVA) | payer MEDICARE, OTHER, SELFPAY | PROVIDERS: PCP Family Medicine; Referring Provider Family Medicine; Visit Provider Anesthesiology Pain Medicine | DX: M54.9 Dorsalgia, unspecified (principal); M51.16 Intervertebral disc disorders with radiculopathy, lumbar region; M47.816 Spondylosis without myelopathy or radiculopathy, lumbar region; Z98.890 Other specified postprocedural states | CPT/HCPCS: 72110; 99204 ==

== ENCOUNTER 2023-08-27 10:33 | Outpatient (CLI) | payer MEDICARE, OTHER, SELFPAY ==
--- NOTE | 2023-08-27 11:00 | MR_ITS ---
WS: [id number] MRI LUMBAR SPINE NONCONTRAST HISTORY: M54.16 - Radiculopathy, lumbar region COMPARISON: 06/01/2014 TECHNIQUE: Sagittal and axial multisequence imaging is submitted. Advanced degenerative disc disease throughout the cervical and thoracic spine. T1 anterolisthesis by 5 mm. There is very slight anterior wedging of T7. Prior vertebroplasties at T12 and L1. L4 anterolisthesis by 6.7 mm is new since the prior study. Ther e is mild anterior wedging of L2 which is stable. There are small amount of marrow edema in the L3 an d L4 vertebral bodies without loss of height. Disc spaces are all narrowed and desiccated. Conus terminates normally at L1-2 disc level. L1-L2: Diffuse annular disc bulging, osteophytic ridging and facet arthritis. Mild central with moder ate bilateral subarticular recess and foraminal stenosis. Similar to the prior study. L2-L3: Mild scoliosis, osteophytic ridging. Moderate facet joint arthritis. Moderate RIGHT, mild LEFT foraminal stenosis and mild central stenosis. L3-L4: Marked annular disc bulging, osteophytic ridging with advanced facet joint arthritis and ligam entum flavum arthritis. Severe central, bilateral subarticular recess and foraminal stenosis. Stenosi s has progressed since the prior study. L4-L5: Severe annular disc bulging, mild osteophytic ridging and facet arthritis with ligamentum flav um arthritis. Severe central, bilateral subarticular recess and foraminal stenosis. Progression of st enosis since the prior study. L5-S1: Diffuse annular disc bulging with a shallow central disc protrusion. Disc contacts the LEFT S1 nerve root. Bilateral facet arthritis. Mild central and subarticular recess stenosis with severe for aminal stenosis. Minimal progression since the prior study. Mild atherosclerosis aorta. IMPRESSION: 1. Progression of degenerative disc disease, spondylosis and stenoses throughout the lumbar spine si nce 06/01/2014. 2. L3-4 and L4-5: Severe central, bilateral subarticular recess and foraminal stenosis. Progression of stenoses since the prior study. 3. New L4 anterolisthesis by 6.7 mm since the prior study. 4. Small amount of marrow edema which may be reactive in the L3 and L4 endplates. 5. L1-2: Mild central with moderate bilateral subarticular recess and foraminal stenosis. 6. L2-3: Moderate RIGHT and mild LEFT foraminal stenosis with mild central stenosis. 7. L5-S1: Mild central, bilateral subarticular recess and severe foraminal stenosis.
== END 2023-08-27 10:34 | disposition home or self-care (01) ==
LOC: RAD 10:34
PROVIDERS: PCP Family Medicine; Visit Provider Anesthesiology Pain Medicine
DX: M54.16 Radiculopathy, lumbar region (principal); M51.37 Other intervertebral disc degeneration, lumbosacral region; M48.07 Spinal stenosis, lumbosacral region; M47.817 Spondylosis without myelopathy or radiculopathy, lumbosacral region
CPT/HCPCS: 72148

== ENCOUNTER → 2023-09-11 09:57 | Outpatient (BNVA) | payer MEDICARE, OTHER, SELFPAY | PROVIDERS: PCP Family Medicine; Visit Provider Anesthesiology Pain Medicine | DX: M16.0 Bilateral primary osteoarthritis of hip; M47.816 Spondylosis without myelopathy or radiculopathy, lumbar region; M43.16 Spondylolisthesis, lumbar region | CPT/HCPCS: 73502; 99215 ==

== ENCOUNTER → 2023-09-18 10:08 | Outpatient (BNVA) | payer MEDICARE, OTHER, SELFPAY | PROVIDERS: PCP Family Medicine; Visit Provider Anesthesiology Pain Medicine | DX: M79.18 Myalgia, other site (principal); M54.9 Dorsalgia, unspecified; M16.0 Bilateral primary osteoarthritis of hip | CPT/HCPCS: 20553; 99214; J1030; J3490 ==

== ENCOUNTER → 2023-11-27 11:25 | Outpatient (BNVA) | payer MEDICARE, OTHER, SELFPAY | PROVIDERS: PCP Family Medicine; Visit Provider Internal Medicine Cardiovascular Disease | DX: I25.10 Atherosclerotic heart disease of native coronary artery without angina pectoris (principal); I11.0 Hypertensive heart disease with heart failure; I50.32 Chronic diastolic (congestive) heart failure; I65.23 Occlusion and stenosis of bilateral carotid arteries; E78.5 Hyperlipidemia, unspecified; Z87.891 Personal history of nicotine dependence | CPT/HCPCS: 99214 ==

== ENCOUNTER 2023-12-04 13:25 | Outpatient (CLI) | payer MEDICARE, OTHER, SELFPAY ==
--- NOTE | 2023-12-04 13:30 | USCV_ITS ---
Bhupendra Ambriz Jr Age: 82 Gender: M : 1940 Exam Date: 12/04/2023 13:48 Ordering Phys: Winsome Land MD ([email or web address]) Technologist: Exam Location: [facility] Indication: cca disease Risk Factors: Previous Vascular Surgery: Right Brachial BP: / Left Brachial BP: / Right Left Velocity (cm/s) Spectral Plaque Velocity (cm/s) Spectral Plaque Syst/Diast Broadening Syst/Diast Broadening 118.30/10.40 Prox CCA 97.90 / 10.30 100.60/12.20 Mid CCA 82.20 / 10.30 93.60/ 14.00 Distal CCA 76.90 / 15.60 113.00/14.00 Prox ICA 89.10 / 20.20 90.00/ 10.40 Mid ICA 74.00 / 25.00 60.00/ 10.40 Distal ICA 67.00 / 34.00 132.50 ECA 154.00 1.20 ICA/CCA 1.20 Antegrade Vertebral Antegrade 44.00/ 6.00 cm/s 35.00/ 8.00 cm/s Bi Subclavian Tri 119.0 99.00 0 FINDINGS Minimal plaques at the bifurcations bilaterally Normal Doppler velocities in the external carotid, subclavian and vertebral arteries bilaterally Antegrade flow in the vertebral arteries bilaterally CONCLUSIONS Minimal plaques at the bifurcations bilaterally, suggesting less than 50% stenosis No significant stenosis in the external carotid, vertebral and subclavian arteries, based on the above finding Dr Winsome Land MD [facility] (Electronically Signed) Final Date: 05 Dec 2023 22:25 S
== END 2023-12-04 13:26 | disposition home or self-care (01) ==
LOC: RAD 13:25
PROVIDERS: PCP Family Medicine; Visit Provider Internal Medicine Cardiovascular Disease
DX: I65.23 Occlusion and stenosis of bilateral carotid arteries (principal); I11.0 Hypertensive heart disease with heart failure; I50.9 Heart failure, unspecified; Z87.891 Personal history of nicotine dependence
CPT/HCPCS: 93880

== ENCOUNTER → 2023-12-17 10:03 | Outpatient (BNVA) | payer MEDICARE, OTHER, SELFPAY | PROVIDERS: PCP Family Medicine; Visit Provider Anesthesiology Pain Medicine | DX: M54.50 Low back pain, unspecified | CPT/HCPCS: 99214 ==

== ENCOUNTER 2024-03-04 11:02 | Outpatient (CLI) | payer MEDICARE, OTHER, SELFPAY ==
--- NOTE | 2024-03-04 11:10 | XRR_ITS ---
PROCEDURE INFORMATION: Exam: XR Chest Exam date and time: 03/04/2024 11:34 AM Age: 83 years old Clinical indication: Prior surgery; Surgery date: 6+ months; Surgery type: Stents; Patient HX: Covid two weeks ago. Coughing up stuff and SOB since. ; Additional info: Fatigue/acute cough/acute covid-19 TECHNIQUE: Imaging protocol: Radiologic exam of the chest. Views: 2 views. COMPARISON: CT angio chest PE protcl [id number] 10/16/2020 9:36 AM FINDINGS: Lungs: Mild bibasilar atelectasis/scar. No focal lung consolidation. Pleural spaces: No pleural effusion. No pneumothorax. Heart/Mediastinum: No cardiomegaly. Bones/joints: Stable sclerotic focus within the distal right clavicle. Stable surgical anchors in both humeral heads. Stable cement augmentation of the T12 and L1 vertebral bodies. XR/XR chest 2V* [id number] IMPRESSION: No focal lung consolidation.
== END 2024-03-04 11:03 | disposition home or self-care (01) ==
LOC: RAD 11:08
PROVIDERS: PCP Family Medicine; Visit Provider Nurse Practitioner Family
DX: R53.83 Other fatigue (principal); R05.1 Acute cough; U07.1 COVID-19
CPT/HCPCS: 71046

== ENCOUNTER → 2024-06-04 09:15 | Outpatient (BNVA) | payer MEDICARE, OTHER, SELFPAY | PROVIDERS: PCP Family Medicine; Visit Provider Nurse Practitioner Family | DX: I11.0 Hypertensive heart disease with heart failure (principal); I50.32 Chronic diastolic (congestive) heart failure; I25.10 Atherosclerotic heart disease of native coronary artery without angina pectoris; G30.9 Alzheimer's disease, unspecified; F02.80 Dementia in other diseases classified elsewhere, unspecified severity, without behavioral disturbance, psychotic disturbance, mood disturbance, and anxiety; G47.33 Obstructive sleep apnea (adult) (pediatric); I65.29 Occlusion and stenosis of unspecified carotid artery | CPT/HCPCS: 99214 ==

== ENCOUNTER 2024-06-23 09:44 | Outpatient (CLI) | payer MEDICARE, OTHER, SELFPAY ==
--- NOTE | 2024-06-23 10:15 | MR_ITS ---
WS: [id number] MRI CERVICAL SPINE NONCONTRAST HISTORY: M54.2 - Cervicalgia COMPARISON: 12/01/2018 Technique: Multiplanar, multisequence noncontrast imaging of the cervical spine. Increase in cervical lordosis. C3 retrolisthesis by 1 mm. T1 anterolisthesis by 4.3 mm. Disc spaces a re narrowed throughout the cervical spine similar to the prior study. No fractures or marrow edema. F acet joints are normally aligned. Signal within the cervical cord is normal. Visualized posterior fossa is unremarkable. Craniocervical junction, C1 and C2 relationship, odontoid process and soft tissues are normal. C2-C3: Mild disc bulging and osteophytic ridging. Mild facet arthritis. No stenosis. C3-C4: Disc osteophyte complex with endplate osteophytic ridging. Moderate facet arthritis. Mild cent ral with moderate bilateral foraminal stenosis and facet arthropathy. Similar to the prior study. C4-C5: Diffuse osteophytic ridging with moderate facet arthritis. Mild bilateral foraminal narrowing and facet arthropathy. Similar to the prior study. C5-C6: Mild osteophytic ridging with marked facet joint arthritis. Slight retrolisthesis also of C5. Mild central stenosis. Bilateral severe foraminal stenosis has progressed. C6-C7: Diffuse osteophytic ridging with disc bulging and marked facet arthritis. Mild central stenosi s. Severe RIGHT and moderate LEFT foraminal stenosis. C7-T1: Mild osteophytic ridging with disc bulging. Effacement of ventral thecal sac. Mild central shante nosis. Soft tissue in the LEFT neural foramen is reidentified. Soft tissue measures 12 x 6 mm and is similar to the prior study. Mild encroachment on the far lateral LEFT thecal sac. T1-2: Anterolisthesis of T1 with moderate bilateral foraminal narrowing. Central disc protrusion with facet and ligamentum flavum hypertrophy. There is disc contacting the ventral thecal sac. Similar to the prior study. Paraspinal soft tissue are normal. MR/MR cervical spin wo con* [id number] IMPRESSION: 1. Multilevel central and foraminal stenoses with facet arthropathy. Only mini mal progression since 12/01/2018. 2. Anterolisthesis of T1 by 4.3 mm. 3. C7-1: Reidentified is a soft tissue mass in the LEFT neural foramen measuri ng 12 x 6 mm with mild encroachment upon the far lateral thecal sac. 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 Stable. 4. C6-7: Mild central stenosis with severe RIGHT and moderate LEFT foraminal s tenosis. 5. C5-6: Mild central stenosis with severe bilateral foraminal stenosis with m ild progression. 6. C4-5: Mild bilateral foraminal stenosis. 7. C3-4: Mild central with moderate bilateral foraminal stenosis. 8. T1-2: Focal central disc protrusion contacting the ventral thecal sac. Mild central with moderate bilateral foraminal stenosis.
== END 2024-06-23 09:45 | disposition home or self-care (01) ==
LOC: RAD 09:45
PROVIDERS: PCP Family Medicine; Visit Provider Nurse Practitioner Family
DX: M43.14 Spondylolisthesis, thoracic region (principal); M47.892 Other spondylosis, cervical region; M50.323 Other cervical disc degeneration at C6-C7 level; M25.78 Osteophyte, vertebrae; M99.62 Osseous and subluxation stenosis of intervertebral foramina of thoracic region
CPT/HCPCS: 72141

== ENCOUNTER → 2024-07-14 10:59 | Outpatient (BNVA) | payer MEDICARE, OTHER, SELFPAY | PROVIDERS: PCP Family Medicine; Visit Provider Orthopaedic Surgery | DX: M51.16 Intervertebral disc disorders with radiculopathy, lumbar region (principal); M54.2 Cervicalgia; G89.29 Other chronic pain; M54.9 Dorsalgia, unspecified; M47.22 Other spondylosis with radiculopathy, cervical region | CPT/HCPCS: 72050; 99204 ==

== ENCOUNTER → 2024-09-09 11:35 | Outpatient (BNVA) | payer MEDICARE, OTHER, SELFPAY | PROVIDERS: PCP Family Medicine; Visit Provider Nurse Practitioner Family | DX: I10 Essential (primary) hypertension (principal); Z12.5 Encounter for screening for malignant neoplasm of prostate | CPT/HCPCS: 80053; 80061; 84443; 85025; G0103 ==

== ENCOUNTER → 2024-10-12 08:38 | Outpatient (BNVA) | payer MEDICARE, OTHER, SELFPAY | PROVIDERS: PCP Nurse Practitioner Family; Visit Provider Anesthesiology Pain Medicine | DX: M79.18 Myalgia, other site (principal); M54.9 Dorsalgia, unspecified | CPT/HCPCS: 20553; 99214; J1010; J3490 ==

== ENCOUNTER → 2024-10-16 11:26 | Outpatient (BNVA) | payer MEDICARE, OTHER, SELFPAY | PROVIDERS: PCP Nurse Practitioner Family; Visit Provider Nurse Practitioner Family | DX: R53.83 Other fatigue (principal) | CPT/HCPCS: 82040; 84270; 84403 ==

== ENCOUNTER → 2024-11-30 08:49 | Outpatient (BNVA) | payer MEDICARE, OTHER, SELFPAY | PROVIDERS: PCP Nurse Practitioner Family; Visit Provider Anesthesiology Pain Medicine | DX: M54.9 Dorsalgia, unspecified (principal) | CPT/HCPCS: 99214 ==

== ENCOUNTER → 2024-12-08 08:32 | Outpatient (BNVA) | payer MEDICARE, OTHER, SELFPAY | PROVIDERS: PCP Nurse Practitioner Family; Visit Provider Nurse Practitioner Family | DX: S50.911A Unspecified superficial injury of right forearm, initial encounter (principal); L82.1 Other seborrheic keratosis; L81.4 Other melanin hyperpigmentation; L57.8 Other skin changes due to chronic exposure to nonionizing radiation; X32.XXXA Exposure to sunlight, initial encounter; L57.0 Actinic keratosis; L85.3 Xerosis cutis; Z12.83 Encounter for screening for malignant neoplasm of skin; D48.5 Neoplasm of uncertain behavior of skin; X58.XXXA Exposure to other specified factors, initial encounter | CPT/HCPCS: 11102; 17000; 99203 ==

== ENCOUNTER → 2024-12-16 12:41 | Outpatient (BNVA) | payer MEDICARE, OTHER, SELFPAY | PROVIDERS: PCP Nurse Practitioner Family; Visit Provider Anesthesiology Pain Medicine | DX: M54.9 Dorsalgia, unspecified (principal); M47.816 Spondylosis without myelopathy or radiculopathy, lumbar region | CPT/HCPCS: 64493; 64494; 64495; J3490; J9999 ==

== ENCOUNTER → 2025-01-04 08:32 | Outpatient (BNVA) | payer MEDICARE, OTHER, SELFPAY | PROVIDERS: PCP Nurse Practitioner Family; Visit Provider Anesthesiology Pain Medicine | DX: M54.9 Dorsalgia, unspecified (principal) | CPT/HCPCS: 99214 ==

== ENCOUNTER → 2025-01-21 16:51 | Outpatient (BNVA) | payer MEDICARE, OTHER, SELFPAY | PROVIDERS: PCP Nurse Practitioner Family; Visit Provider Internal Medicine Cardiovascular Disease | DX: I25.10 Atherosclerotic heart disease of native coronary artery without angina pectoris (principal); I11.0 Hypertensive heart disease with heart failure; I50.23 Acute on chronic systolic (congestive) heart failure; E78.5 Hyperlipidemia, unspecified; I65.23 Occlusion and stenosis of bilateral carotid arteries; R00.1 Bradycardia, unspecified; Z95.5 Presence of coronary angioplasty implant and graft; Z87.891 Personal history of nicotine dependence; R07.9 Chest pain, unspecified | CPT/HCPCS: 93005; 99214 ==

== ENCOUNTER → 2025-01-27 08:04 | Outpatient (BNVA) | payer MEDICARE, OTHER, SELFPAY | PROVIDERS: PCP Nurse Practitioner Family; Visit Provider Nurse Practitioner Family | DX: S50.911A Unspecified superficial injury of right forearm, initial encounter (principal); X58.XXXA Exposure to other specified factors, initial encounter; L73.8 Other specified follicular disorders; D18.01 Hemangioma of skin and subcutaneous tissue; L57.8 Other skin changes due to chronic exposure to nonionizing radiation; X32.XXXA Exposure to sunlight, initial encounter; L57.0 Actinic keratosis; L81.4 Other melanin hyperpigmentation | CPT/HCPCS: 17000; 99213 ==

== ENCOUNTER 2025-03-05 06:00 | Outpatient (RCR) | payer MEDICARE, OTHER, SELFPAY | END 2025-04-04 23:59 | disposition home or self-care (01) | LOC: TOT 06:00 | PROVIDERS: PCP Nurse Practitioner Family; Visit Provider Nurse Practitioner Family | DX: M47.22 Other spondylosis with radiculopathy, cervical region (principal); M54.2 Cervicalgia; G89.29 Other chronic pain; M25.641 Stiffness of right hand, not elsewhere classified | CPT/HCPCS: 99214 ==

== ENCOUNTER 2025-03-11 07:35 | Outpatient (CLI) | payer MEDICARE, OTHER, SELFPAY | END 2025-03-11 07:36 | disposition home or self-care (01) | LOC: RAD 03-23 12:21 | PROVIDERS: PCP Nurse Practitioner Family; Visit Provider Orthopaedic Surgery | DX: M50.321 Other cervical disc degeneration at C4-C5 level (principal); R29.3 Abnormal posture; M50.31 Other cervical disc degeneration, high cervical region; M50.322 Other cervical disc degeneration at C5-C6 level; M48.02 Spinal stenosis, cervical region; M50.323 Other cervical disc degeneration at C6-C7 level; I65.23 Occlusion and stenosis of bilateral carotid arteries; M47.892 Other spondylosis, cervical region | CPT/HCPCS: 72040 ==

== ENCOUNTER 2025-03-28 04:30 | Outpatient (CLI) | payer MEDICARE, OTHER, SELFPAY | END 2025-03-29 11:59 | disposition home or self-care (01) | LOC: SLEEP 03-29 12:07 | PROVIDERS: PCP Nurse Practitioner Family; Referring Provider Nurse Practitioner Family; Visit Provider Internal Medicine Pulmonary Disease | DX: G47.33 Obstructive sleep apnea (adult) (pediatric) (principal) | CPT/HCPCS: 72040; G0399 ==

== ENCOUNTER → 2025-04-15 12:12 | Outpatient (BNVA) | payer MEDICARE, OTHER, SELFPAY | PROVIDERS: PCP Nurse Practitioner Family; Visit Provider Nurse Practitioner Family | DX: I10 Essential (primary) hypertension (principal) | CPT/HCPCS: 80053; 80061; 84443; 85025 ==

== ENCOUNTER → 2025-04-20 10:50 | Outpatient (BNVA) | payer MEDICARE, OTHER, SELFPAY | PROVIDERS: PCP Nurse Practitioner Family; Visit Provider Anesthesiology Pain Medicine | DX: M54.9 Dorsalgia, unspecified (principal); Z87.891 Personal history of nicotine dependence | CPT/HCPCS: 99214 ==

== ENCOUNTER → 2025-06-14 14:40 | Outpatient (BNVA) | payer MEDICARE, OTHER, SELFPAY | PROVIDERS: PCP Nurse Practitioner Family; Visit Provider Nurse Practitioner Family | DX: M19.021 Primary osteoarthritis, right elbow (principal); M24.021 Loose body in right elbow; M25.421 Effusion, right elbow | CPT/HCPCS: 73080 ==

== ENCOUNTER → 2025-07-06 11:39 | Outpatient (BNVA) | payer MEDICARE, OTHER, SELFPAY | PROVIDERS: PCP Nurse Practitioner Family; Visit Provider Internal Medicine Cardiovascular Disease | DX: I25.10 Atherosclerotic heart disease of native coronary artery without angina pectoris (principal); I11.0 Hypertensive heart disease with heart failure; I50.32 Chronic diastolic (congestive) heart failure; R00.1 Bradycardia, unspecified; E78.5 Hyperlipidemia, unspecified; I65.23 Occlusion and stenosis of bilateral carotid arteries; Z95.5 Presence of coronary angioplasty implant and graft; Z87.891 Personal history of nicotine dependence | CPT/HCPCS: 99214 ==

== ENCOUNTER → 2025-08-04 09:11 | Outpatient (BNVA) | payer MEDICARE, OTHER, SELFPAY | PROVIDERS: PCP Nurse Practitioner Family; Visit Provider Nurse Practitioner Family | DX: I95.9 Hypotension, unspecified (principal); I10 Essential (primary) hypertension; I25.10 Atherosclerotic heart disease of native coronary artery without angina pectoris; R25.2 Cramp and spasm; G47.00 Insomnia, unspecified; Z87.891 Personal history of nicotine dependence | CPT/HCPCS: 99214 ==